=== PATIENT | female | born 1955 | race African-American/Black ===

== ENCOUNTER 2018-02-27 02:51 | Inpatient (IN) | payer MEDICARE, OTHER ==
[2018-02-27] VITALS (72 sets, daily range): BP systolic 94–171; BP diastolic 53–94
[~2018-02-27] VITALS: Ht 152.4 cm; Wt 61.6 kg
[~2018-02-27 02:51] MED LIST: AML5T PO; ASCO500T11 PO; ASPI-231 PO; ATOR40TA52 PO; FERR-7 PO; FLUT1INH6 IN; HYDR50TA15 PO; INSUINJ18 SC; LEVEMIR SC; MET50T PO; OXYB15TA12 PO
[2018-02-27] MEDS ORDERED: methylPREDNISolone SOD SUCC 125 MG/2 ML VL IV ONE ×2 (03:00→06:30)
[2018-02-27] MEDS ORDERED: methylPREDNISolone SOD SUCC 125 MG/2 ML VL ONE (03:00)
[2018-02-27 03:12] LABS: Basophils # (auto) 0.1 uL; Basophils % (auto) 0.6 % (0.0-2.0); Eosinophils # (auto) 0.3 uL; Hematocrit 46.2 % (36.0-46.0); Hemoglobin 15.2 g/dL (12.2-16.2); Lymphocytes # (auto) 8.2 uL; Lymphocytes % (auto) 54.9 % (10.0-50.0); Mean Corpuscular Hemoglobin 29.3 pg (28.0-32.0); Mean Corpuscular Hgb Conc. 32.9 g/dL (32.0-36.0); Mean Corpuscular Volume 89.1 fL (80.0-100.0); Monocytes # (auto) 0.8 uL; Monocytes % (auto) 5.3 % (0.0-12.0); Neutrophils # (auto) 5.5 uL; Neutrophils % (auto) 37.2 % (37.0-80.0); Nucleated Red Blood Cells % 0.2 %; Platelet Count (auto) 437 10^3/uL (140-450); Red Blood Cells 5.18 10^6/uL (4.0-5.20); Red Cell Distribution Width 13.5 % (11.8-14.3); White Blood Cell 14.9 10^3/uL (4.4-10.8)
[2018-02-27] MEDS ORDERED: MAGNESIUM SULFATE 1GM/100ML 100 ML IV ONE (03:13)
[2018-02-27] MEDS ORDERED: LORazepam 2MG/ML-1ML VIAL IV ONE ×2 (03:15→04:15)
[2018-02-27] MEDS ORDERED: LORazepam 2MG/ML-1ML VIAL ONE (03:15)
[2018-02-27] MEDS: MAGNESIUM SULFATE 1GM/100ML 100 ML IV SCH ×6 (03:25→19:00)
[2018-02-27 03:27] LABS: INR 0.92 (0.9-1.15); Partial Thromboplastin Time 27.3 sec (23.78-33.04); Prothrombin Time 9.9 sec (9.27-12.13)
[2018-02-27 03:29] LABS: Alanine Aminotransferase 34 U/L (13-56); Anion Gap 10 (5-15); Aspartate Aminotransferase 25 U/L (15-37); BUN/Creatinine Ratio 16.7; Blood Urea Nitrogen 18 mg/dL (7-18); Calcium 8.9 mg/dL (8.5-10.1); Carbon Dioxide 26 mmol/L (21-32); Chloride 102 mmol/L (98-107); GFR African American 67 mL/min; GFR Non-African American 55 mL/min; Magnesium 1.9 mg/dL (1.6-2.6); Sodium 138 mmol/L (136-145)
[2018-02-27 03:34] LABS: Alkaline Phosphatase 112 U/L (45-117); Bilirubin, Total 0.6 mg/dL (0.2-1.0); Total Protein 8.7 g/dL (6.4-8.2)
[2018-02-27] MEDS ORDERED: METOPROLOL TARTRATE 1MG/1ML-5ML VIAL IV ONE ×2 (03:34→04:00)
[2018-02-27 03:42] LABS: Glucose 410 mg/dL (74-106)
[2018-02-27] MEDS ORDERED: IPRATROPIUM BROM 0.5 MG/2.5ML INH SOL NEB ONE (03:45)
[2018-02-27] MEDS ORDERED: InsuLIN REG 1unit/0.01ml Soln (100units/ml) IV ONE ×2 (03:45→13:15)
[2018-02-27] MEDS ORDERED: ALBUTEROL SULF 2.5 MG/0.5ML(0.5%) NEB SOLN NEB ONE (03:45)
[2018-02-27] MEDS ORDERED: EPINEPHrine HCL 0.5 ML NEB ONE (04:20)
[2018-02-27] MEDS ORDERED: EPINEPHrine HCL 0.5 ML NEB NEB ONE (04:30)
[2018-02-27] MEDS ORDERED: SUCCINYLCHOLINE CHLORIDE 20 MG/ML 10ML VIAL IV ONE ×2 (05:05→05:15)
[2018-02-27] MEDS ORDERED: ETOMIDATE (2MG/ML) 20ML VIAL IV ONE ×2 (05:06→05:15)
[2018-02-27] MEDS ORDERED: PROPOFOL 100 ML IV ONE (05:07)
[2018-02-27] MEDS: PROPOFOL 100 ML IV SCH ×2 (05:25→22:37)
[2018-02-27] MEDS ORDERED: PROMETHAZINE W/CODEINE 5 ML ORAL SYRUP PO ONE (05:45)
[2018-02-27] MEDS: MIDAZOLAM DRIP 50 mg/50mL 50 ML IV SCH ×2 (06:21→20:38)
[2018-02-27] MEDS: NOREPINEPHRINE 8 MG/250ML KIT 250 ML IV SCH (06:21)
[2018-02-27] MEDS ORDERED: ACETAMINOPHEN 650 mg PER 20 mL UD PO PRN (06:30)
[2018-02-27] MEDS ORDERED: ONDANSETRON HCL 4 MG/2 ML VIAL IV PRN (06:30)
[2018-02-27] MEDS ORDERED: VANCOMYCIN PER PHARMACY 0 MG IV SCH (06:30)
[2018-02-27] MEDS ORDERED: DEXTROSE (50%) 50ML SYRG IV PRN (06:30)
[2018-02-27] MEDS ORDERED: SODIUM CHLORIDE 0.9% 1,000 ML IV ONE (06:30)
[2018-02-27] MEDS ORDERED: PIPERACILLIN-TAZOB 3.375GM 100 ML IV ONE (06:30)
[2018-02-27 07:02] LABS: Urine Bacteria NONE SEEN /hpf (None Seen); Urine Blood Negative /uL (Negative); Urine Specific Gravity 1.025 (1.001-1.035); Urine WBC <1 /hpf (0 - 5)
[2018-02-27 07:26] LABS: Lactic Acid w/Reflex 7.7 mmol/L (0.4-2.0)
[2018-02-27 07:38] LABS: BUN/Creatinine Ratio 15.3; Calcium 8.5 mg/dL (8.5-10.1); Potassium 3.1 mmol/L (3.5-5.1)
[2018-02-27] MEDS ORDERED: VANCOMYCIN 1GM/250ML 250 ML IV ONE (08:00)
[2018-02-27] MEDS: ACCU-CHEK COMFORT CURVE STRIP VI SCH ×4 (08:46→20:30)
[2018-02-27] MEDS: InsuLIN REG 1unit/0.01ml Soln (100units/ml) SC SCH ×4 (08:46→20:30)
[2018-02-27] MEDS ORDERED: AMIODARONE HCL 150 MG in D5W 5% 100 ML IV ONE (10:00)
[2018-02-27] MEDS ORDERED: IPRATROPIUM BROM 0.5 MG/2.5ML INH SOL NEB SCH (10:00)
[2018-02-27] MEDS ORDERED: ALBUTEROL SULF 2.5 MG/0.5ML(0.5%) NEB SOLN NEB SCH (10:00)
[2018-02-27] MEDS ORDERED: AMIODARONE HCL 900 MG in DEXTROSE 500 ML IV SCH ×2 (10:10→16:10)
[2018-02-27] MEDS: ALBUTEROL SULF 2.5 MG/0.5ML(0.5%) NEB SOLN NEB SCH ×2 (10:22→18:19)
[2018-02-27] MEDS: IPRATROPIUM BROM 0.5 MG/2.5ML INH SOL NEB SCH ×2 (10:22→18:19)
[2018-02-27] MEDS: PANTOPRAZOLE 40 MG/10 ML VIAL IV SCH (10:25)
[2018-02-27] MEDS: POTASSIUM CHL 20MEQ/100ML 100 ML IV SCH ×2 (10:25→11:56)
[2018-02-27] MEDS ORDERED: EPINEPHrine HCL 1 MG/10 ML SYRG IV ONE (10:44)
[2018-02-27] MEDS: PIPERACILLIN-TAZOB 3.375GM 100 ML IV SCH ×2 (11:56→17:53)
[2018-02-27 13:04] LABS: BUN/Creatinine Ratio 12.2; Calcium 8.5 mg/dL (8.5-10.1)
[2018-02-27 13:06] LABS: Lactic Acid w/Reflex 8.7 mmol/L (0.4-2.0)
[2018-02-27] MEDS ORDERED: INSULIN LANTUS (GLARGINE) 1 /0.01ml (100units/ml) SC ONE (13:15)
[2018-02-27] MEDS: methylPREDNISolone SOD SUCC 40 MG/ML VL IV SCH ×2 (14:29→22:35)
[2018-02-27] MEDS ORDERED: POTASSIUM CHL 20MEQ/100ML 100 ML IV SCH (15:30)
[2018-02-27] MEDS: INSULIN LANTUS (GLARGINE) 1 /0.01ml (100units/ml) SC SCH (22:36)
[2018-02-28] VITALS (107 sets, daily range): BP systolic 94–173; BP diastolic 58–94
[2018-02-28] MEDS: PIPERACILLIN-TAZOB 3.375GM 100 ML IV SCH ×4 (00:13→19:02)
[2018-02-28] MEDS: InsuLIN REG 1unit/0.01ml Soln (100units/ml) SC SCH ×6 (00:13→20:12)
[2018-02-28] MEDS: ACCU-CHEK COMFORT CURVE STRIP VI SCH ×6 (00:13→20:11)
[2018-02-28] MEDS: IPRATROPIUM BROM 0.5 MG/2.5ML INH SOL NEB SCH ×4 (00:31→18:31)
[2018-02-28] MEDS: ALBUTEROL SULF 2.5 MG/0.5ML(0.5%) NEB SOLN NEB SCH ×4 (00:31→18:31)
[2018-02-28 04:24] LABS: Basophils # (auto) 0 uL; Basophils % (auto) 0.1 % (0.0-2.0); Eosinophils # (auto) 0 uL; Hematocrit 37.2 % (36.0-46.0); Hemoglobin 12.4 g/dL (12.2-16.2); Lymphocytes # (auto) 1.6 uL; Lymphocytes % (auto) 9.1 % (10.0-50.0); Mean Corpuscular Hemoglobin 29.4 pg (28.0-32.0); Mean Corpuscular Hgb Conc. 33.3 g/dL (32.0-36.0); Mean Corpuscular Volume 88.3 fL (80.0-100.0); Monocytes # (auto) 0.6 uL; Monocytes % (auto) 3.7 % (0.0-12.0); Neutrophils # (auto) 15.3 uL; Neutrophils % (auto) 87.1 % (37.0-80.0); Platelet Count (auto) 393 10^3/uL (140-450); Red Blood Cells 4.22 10^6/uL (4.0-5.20); Red Cell Distribution Width 13.6 % (11.8-14.3); White Blood Cell 17.5 10^3/uL (4.4-10.8)
[2018-02-28 04:34] LABS: Albumin 3.3 g/dL (3.4-5.0); BUN/Creatinine Ratio 15.7; Calcium 8.8 mg/dL (8.5-10.1); Potassium 3.6 mmol/L (3.5-5.1)
[2018-02-28 04:37] LABS: Bilirubin, Total 0.7 mg/dL (0.2-1.0); Total Protein 6.7 g/dL (6.4-8.2)
[2018-02-28] MEDS: methylPREDNISolone SOD SUCC 40 MG/ML VL IV SCH ×3 (06:18→21:55)
[2018-02-28] MEDS: NOREPINEPHRINE 8 MG/250ML KIT 250 ML IV SCH (06:21)
[2018-02-28] MEDS: MIDAZOLAM DRIP 50 mg/50mL 50 ML IV SCH (06:30)
[2018-02-28] MEDS: PROPOFOL 100 ML IV SCH ×2 (06:30→20:15)
[2018-02-28] MEDS: INSULIN LANTUS (GLARGINE) 1 /0.01ml (100units/ml) SC SCH ×2 (06:30→21:55)
[2018-02-28] MEDS ORDERED: VANCOMYCIN 1GM/250ML 250 ML IV ONE (10:15)
[2018-02-28] MEDS: PANTOPRAZOLE 40 MG/10 ML VIAL IV SCH (10:29)
[2018-02-28] MEDS ORDERED: Glucerna 1.2 Cal 1Liter BOTTLE GT SCH (12:15)
[2018-02-28] MEDS: ENOXAPARIN SOD 30 MG/0.3 ML SYRINGE SC SCH (13:26)
[2018-02-28] MEDS: SODIUM CHLORIDE 0.9% 1,000 ML IV SCH (13:26)
[2018-02-28 15:29] LABS: Alcohol, Urine < 3.0 mg/dL (0-5); Amphetamine Screen, Urine NEGATIVE (NEGATIVE); Barbiturate Scree,Urine NEGATIVE (NEGATIVE); Benzodiazephine Screen, Urine POSITIVE (NEGATIVE); Cannabinoid Screen, Urine NEGATIVE (NEGATIVE); Cocaine Screen, Urine NEGATIVE (NEGATIVE); Opiate Scree,Urine NEGATIVE (NEGATIVE); Phencyclidine Screen, Urine NEGATIVE (NEGATIVE)
[2018-02-28] MEDS: LABETALOL HCL 5 MG/ML ML 20ML VIAL IV PRN (21:56)
[2018-03-01] VITALS (106 sets, daily range): BP systolic 101–186; BP diastolic 62–105
[2018-03-01] MEDS: IPRATROPIUM BROM 0.5 MG/2.5ML INH SOL NEB SCH ×4 (00:08→19:09)
[2018-03-01] MEDS: ALBUTEROL SULF 2.5 MG/0.5ML(0.5%) NEB SOLN NEB SCH ×4 (00:08→19:09)
[2018-03-01] MEDS: ACCU-CHEK COMFORT CURVE STRIP VI SCH ×6 (00:47→19:55)
[2018-03-01] MEDS: PIPERACILLIN-TAZOB 3.375GM 100 ML IV SCH ×4 (00:47→18:02)
[2018-03-01] MEDS: InsuLIN REG 1unit/0.01ml Soln (100units/ml) SC SCH ×6 (00:47→19:55)
[2018-03-01] MEDS: SODIUM CHLORIDE 0.9% 1,000 ML IV SCH (01:35)
[2018-03-01] MEDS: LABETALOL HCL 5 MG/ML ML 20ML VIAL IV PRN (02:54)
[2018-03-01 04:14] LABS: Basophils # (auto) 0 uL; Basophils % (auto) 0.2 % (0.0-2.0); Eosinophils # (auto) 0 uL; Hematocrit 38.6 % (36.0-46.0); Hemoglobin 12.5 g/dL (12.2-16.2); Lymphocytes # (auto) 1.2 uL; Lymphocytes % (auto) 6.2 % (10.0-50.0); Mean Corpuscular Hemoglobin 28.9 pg (28.0-32.0); Mean Corpuscular Hgb Conc. 32.4 g/dL (32.0-36.0); Mean Corpuscular Volume 89.3 fL (80.0-100.0); Monocytes # (auto) 0.5 uL; Monocytes % (auto) 2.5 % (0.0-12.0); Neutrophils # (auto) 17.9 uL; Neutrophils % (auto) 91.1 % (37.0-80.0); Platelet Count (auto) 376 10^3/uL (140-450); Red Blood Cells 4.32 10^6/uL (4.0-5.20); White Blood Cell 19.7 10^3/uL (4.4-10.8)
[2018-03-01 04:31] LABS: BUN/Creatinine Ratio 16.7; Calcium 8.4 mg/dL (8.5-10.1); Potassium 4.2 mmol/L (3.5-5.1)
[2018-03-01] MEDS ORDERED: hydrALAZINE HCL 20 MG/ML VL IV ONE (05:30)
[2018-03-01] MEDS: methylPREDNISolone SOD SUCC 40 MG/ML VL IV SCH ×3 (06:09→21:49)
[2018-03-01] MEDS: NOREPINEPHRINE 8 MG/250ML KIT 250 ML IV SCH (06:21)
[2018-03-01] MEDS: INSULIN LANTUS (GLARGINE) 1 /0.01ml (100units/ml) SC SCH ×2 (06:43→21:50)
[2018-03-01] MEDS: MORPHINE SULFATE 4 MG/ML SYR/VIAL IV PRN (08:27)
[2018-03-01] MEDS ORDERED: VANCOMYCIN 1GM/250ML 250 ML IV SCH (10:00)
[2018-03-01] MEDS: PANTOPRAZOLE 40 MG/10 ML VIAL IV SCH (10:31)
[2018-03-01] MEDS: ENOXAPARIN SOD 30 MG/0.3 ML SYRINGE SC SCH (10:32)
[2018-03-01] MEDS: PROPOFOL 100 ML IV SCH (15:00)
[2018-03-01] MEDS: MIDAZOLAM DRIP 50 mg/50mL 50 ML IV SCH (15:00)
[2018-03-02] VITALS (107 sets, daily range): BP systolic 107–187; BP diastolic 61–106
[2018-03-02] MEDS: IPRATROPIUM BROM 0.5 MG/2.5ML INH SOL NEB SCH ×4 (00:11→18:31)
[2018-03-02] MEDS: ALBUTEROL SULF 2.5 MG/0.5ML(0.5%) NEB SOLN NEB SCH ×4 (00:11→18:31)
[2018-03-02] MEDS: ACCU-CHEK COMFORT CURVE STRIP VI SCH ×5 (00:16→20:48)
[2018-03-02] MEDS: InsuLIN REG 1unit/0.01ml Soln (100units/ml) SC SCH ×5 (00:16→20:00)
[2018-03-02] MEDS: PIPERACILLIN-TAZOB 3.375GM 100 ML IV SCH ×3 (00:29→13:55)
[2018-03-02] MEDS: hydrALAZINE HCL 20 MG/ML VL IV PRN ×2 (00:46→12:26)
[2018-03-02] MEDS: PROPOFOL 100 ML IV SCH (02:39)
[2018-03-02] MEDS: LABETALOL HCL 5 MG/ML ML 20ML VIAL IV PRN ×2 (03:24→13:57)
[2018-03-02 04:29] LABS: Anion Gap 8 (5-15); BUN/Creatinine Ratio 19.1; Blood Urea Nitrogen 21 mg/dL (7-18); Calcium 8.1 mg/dL (8.5-10.1); Carbon Dioxide 20 mmol/L (21-32); Chloride 114 mmol/L (98-107); GFR African American 65 mL/min; GFR Non-African American 54 mL/min; Glucose 161 mg/dL (74-106); Potassium 4.1 mmol/L (3.5-5.1); Sodium 142 mmol/L (136-145)
[2018-03-02 05:23] LABS: Basophils # (auto) 0 uL; Eosinophils # (auto) 0 uL; Hemoglobin 12.9 g/dL (12.2-16.2); Mean Corpuscular Hemoglobin 29.3 pg (28.0-32.0); Mean Corpuscular Volume 88.7 fL (80.0-100.0); Monocytes # (auto) 0.4 uL; Monocytes % (auto) 3.4 % (0.0-12.0); Neutrophils # (auto) 11.6 uL; Neutrophils % (auto) 88.6 % (37.0-80.0); Nucleated Red Blood Cells % 0.2 %; Platelet Count (auto) 372 10^3/uL (140-450); Red Cell Distribution Width 14.2 % (11.8-14.3); White Blood Cell 13.1 10^3/uL (4.4-10.8)
[2018-03-02] MEDS: methylPREDNISolone SOD SUCC 40 MG/ML VL IV SCH ×3 (06:00→22:03)
[2018-03-02] MEDS: NOREPINEPHRINE 8 MG/250ML KIT 250 ML IV SCH (06:21)
[2018-03-02] MEDS: INSULIN LANTUS (GLARGINE) 1 /0.01ml (100units/ml) SC SCH ×2 (06:50→22:00)
[2018-03-02] MEDS: PANTOPRAZOLE 40 MG/10 ML VIAL IV SCH (10:20)
[2018-03-02] MEDS: ENOXAPARIN SOD 30 MG/0.3 ML SYRINGE SC SCH (10:21)
[2018-03-02] MEDS: VANCOMYCIN 1GM/250ML 250 ML IV SCH (12:24)
[2018-03-02] MEDS: MORPHINE SULFATE 4 MG/ML SYR/VIAL IV PRN (20:47)
[2018-03-02] MEDS: hydrALAZINE HCL 25 MG TAB PO SCH (22:03)
[2018-03-02] MEDS: METOPROLOL TARTRATE 50 MG TAB PO SCH (22:04)
[2018-03-03] VITALS (85 sets, daily range): BP systolic 137–187; BP diastolic 73–116
[2018-03-03] MEDS: PIPERACILLIN-TAZOB 3.375GM 100 ML IV SCH ×5 (00:06→23:36)
[2018-03-03] MEDS: ACCU-CHEK COMFORT CURVE STRIP VI SCH ×7 (00:06→23:36)
[2018-03-03] MEDS: IPRATROPIUM BROM 0.5 MG/2.5ML INH SOL NEB SCH ×4 (00:23→18:23)
[2018-03-03] MEDS: ALBUTEROL SULF 2.5 MG/0.5ML(0.5%) NEB SOLN NEB SCH ×4 (00:23→18:23)
[2018-03-03] MEDS: MORPHINE SULFATE 4 MG/ML SYR/VIAL IV PRN (01:18)
[2018-03-03] MEDS: PROPOFOL 100 ML IV SCH (01:55)
[2018-03-03] MEDS: LABETALOL HCL 5 MG/ML ML 20ML VIAL IV PRN ×2 (02:10→18:29)
[2018-03-03] MEDS: LORazepam 2MG/ML-1ML VIAL IV PRN ×2 (03:45→23:37)
[2018-03-03 04:13] LABS: Basophils # (auto) 0 uL; Basophils % (auto) 0.1 % (0.0-2.0); Eosinophils # (auto) 0 uL; Hematocrit 40.1 % (36.0-46.0); Hemoglobin 13.1 g/dL (12.2-16.2); Lymphocytes # (auto) 1.3 uL; Lymphocytes % (auto) 10.6 % (10.0-50.0); Mean Corpuscular Hemoglobin 29.2 pg (28.0-32.0); Mean Corpuscular Hgb Conc. 32.7 g/dL (32.0-36.0); Mean Corpuscular Volume 89.4 fL (80.0-100.0); Monocytes # (auto) 0.4 uL; Neutrophils # (auto) 10.7 uL; Neutrophils % (auto) 86.3 % (37.0-80.0); Nucleated Red Blood Cells % 0.7 %; Platelet Count (auto) 333 10^3/uL (140-450); Red Blood Cells 4.48 10^6/uL (4.0-5.20); Red Cell Distribution Width 14.1 % (11.8-14.3); White Blood Cell 12.3 10^3/uL (4.4-10.8)
[2018-03-03] MEDS: VANCOMYCIN 1GM/250ML 250 ML IV SCH ×2 (04:20→19:15)
[2018-03-03] MEDS: InsuLIN REG 1unit/0.01ml Soln (100units/ml) SC SCH ×7 (04:20→23:36)
[2018-03-03 04:35] LABS: BUN/Creatinine Ratio 18.6; Calcium 8.3 mg/dL (8.5-10.1); Potassium 4.3 mmol/L (3.5-5.1)
[2018-03-03] MEDS: NOREPINEPHRINE 8 MG/250ML KIT 250 ML IV SCH (05:35)
[2018-03-03] MEDS: MIDAZOLAM DRIP 50 mg/50mL 50 ML IV SCH (05:35)
[2018-03-03] MEDS: hydrALAZINE HCL 20 MG/ML VL IV PRN ×2 (05:56→17:14)
[2018-03-03] MEDS: INSULIN LANTUS (GLARGINE) 1 /0.01ml (100units/ml) SC SCH ×2 (05:57→21:47)
[2018-03-03] MEDS: methylPREDNISolone SOD SUCC 40 MG/ML VL IV SCH ×3 (05:57→21:37)
[2018-03-03] MEDS: PANTOPRAZOLE 40 MG/10 ML VIAL IV SCH (10:09)
[2018-03-03] MEDS: amLODIPine BESYLATE 5 MG TAB PO SCH (10:10)
[2018-03-03] MEDS: hydrALAZINE HCL 25 MG TAB PO SCH ×2 (10:11→21:37)
[2018-03-03] MEDS: METOPROLOL TARTRATE 50 MG TAB PO SCH ×2 (10:11→20:48)
[2018-03-03] MEDS: ENOXAPARIN SOD 30 MG/0.3 ML SYRINGE SC SCH (10:11)
[2018-03-04] VITALS (26 sets, daily range): BP systolic 106–194; BP diastolic 59–113
[2018-03-04] MEDS: hydrALAZINE HCL 20 MG/ML VL IV PRN (00:14)
[2018-03-04] MEDS: ALBUTEROL SULF 2.5 MG/0.5ML(0.5%) NEB SOLN NEB SCH ×4 (00:15→18:56)
[2018-03-04] MEDS: IPRATROPIUM BROM 0.5 MG/2.5ML INH SOL NEB SCH ×4 (00:15→18:55)
[2018-03-04] MEDS: LABETALOL HCL 5 MG/ML ML 20ML VIAL IV PRN ×2 (02:12→06:41)
[2018-03-04] MEDS: InsuLIN REG 1unit/0.01ml Soln (100units/ml) SC SCH ×6 (04:04→23:42)
[2018-03-04] MEDS: PROPOFOL 100 ML IV SCH (04:04)
[2018-03-04] MEDS: ACCU-CHEK COMFORT CURVE STRIP VI SCH ×5 (04:04→17:54)
[2018-03-04 04:18] LABS: Basophils # (auto) 0.1 uL; Basophils % (auto) 0.5 % (0.0-2.0); Eosinophils # (auto) 0 uL; Hematocrit 43.6 % (36.0-46.0); Hemoglobin 14.4 g/dL (12.2-16.2); Lymphocytes # (auto) 2.1 uL; Lymphocytes % (auto) 15.4 % (10.0-50.0); Mean Corpuscular Hemoglobin 29.3 pg (28.0-32.0); Mean Corpuscular Volume 88.9 fL (80.0-100.0); Monocytes # (auto) 0.7 uL; Neutrophils # (auto) 10.6 uL; Neutrophils % (auto) 79.1 % (37.0-80.0); Nucleated Red Blood Cells % 0.2 %; Platelet Count (auto) 426 10^3/uL (140-450); Red Blood Cells 4.91 10^6/uL (4.0-5.20); Red Cell Distribution Width 13.9 % (11.8-14.3); White Blood Cell 13.4 10^3/uL (4.4-10.8)
[2018-03-04 04:30] LABS: Calcium 8.8 mg/dL (8.5-10.1); Potassium 3.6 mmol/L (3.5-5.1)
[2018-03-04 04:32] LABS: BUN/Creatinine Ratio 15.8
[2018-03-04] MEDS: PIPERACILLIN-TAZOB 3.375GM 100 ML IV SCH ×2 (06:00→10:09)
[2018-03-04] MEDS: INSULIN LANTUS (GLARGINE) 1 /0.01ml (100units/ml) SC SCH ×2 (06:00→22:28)
[2018-03-04] MEDS: methylPREDNISolone SOD SUCC 40 MG/ML VL IV SCH ×2 (06:00→13:35)
[2018-03-04] MEDS: MIDAZOLAM DRIP 50 mg/50mL 50 ML IV SCH (06:00)
[2018-03-04] MEDS: NOREPINEPHRINE 8 MG/250ML KIT 250 ML IV SCH (06:00)
[2018-03-04] MEDS: PANTOPRAZOLE 40 MG/10 ML VIAL IV SCH (10:08)
[2018-03-04] MEDS: hydrALAZINE HCL 25 MG TAB PO SCH ×2 (10:09→22:29)
[2018-03-04] MEDS: amLODIPine BESYLATE 5 MG TAB PO SCH (10:09)
[2018-03-04] MEDS: METOPROLOL TARTRATE 50 MG TAB PO SCH ×2 (10:09→22:28)
[2018-03-04] MEDS: ENOXAPARIN SOD 30 MG/0.3 ML SYRINGE SC SCH (10:10)
[2018-03-04] MEDS: VANCOMYCIN 1GM/250ML 250 ML IV SCH (12:01)
[2018-03-04] MEDS ORDERED: MORPHINE SULFATE 4 MG/ML SYR/VIAL IV PRN (13:15)
[2018-03-04] MEDS ORDERED: DEXTROSE (50%) 50ML SYRG IV PRN (16:45)
[2018-03-05] VITALS (15 sets, daily range): BP systolic 91–160; BP diastolic 46–95
[2018-03-05] MEDS: ACCU-CHEK COMFORT CURVE STRIP VI SCH ×4 (00:15→17:27)
[2018-03-05] MEDS: IPRATROPIUM BROM 0.5 MG/2.5ML INH SOL NEB SCH ×4 (00:17→18:43)
[2018-03-05] MEDS: ALBUTEROL SULF 2.5 MG/0.5ML(0.5%) NEB SOLN NEB SCH ×4 (00:17→18:43)
[2018-03-05] MEDS ORDERED: methylPREDNISolone SOD SUCC 40 MG/ML VL IV SCH (02:00)
[2018-03-05] MEDS: InsuLIN REG 1unit/0.01ml Soln (100units/ml) SC SCH ×3 (06:00→17:27)
[2018-03-05] MEDS: INSULIN LANTUS (GLARGINE) 1 /0.01ml (100units/ml) SC SCH (06:17)
[2018-03-05] MEDS: amLODIPine BESYLATE 5 MG TAB PO SCH (09:42)
[2018-03-05] MEDS: METOPROLOL TARTRATE 50 MG TAB PO SCH ×2 (09:43→22:11)
[2018-03-05] MEDS: PANTOPRAZOLE 40 MG/10 ML VIAL IV SCH (09:43)
[2018-03-05] MEDS: hydrALAZINE HCL 25 MG TAB PO SCH ×2 (09:43→22:10)
[2018-03-05] MEDS: ENOXAPARIN SOD 30 MG/0.3 ML SYRINGE SC SCH (09:43)
[2018-03-05] MEDS ORDERED: VANCOMYCIN PER PHARMACY 0 MG IV SCH (10:15)
[2018-03-05] MEDS: VANCOMYCIN 1GM/250ML 250 ML IV SCH (10:48)
[2018-03-05] MEDS: predniSONE 20 MG TAB PO SCH (12:35)
[2018-03-05] MEDS ORDERED: INSULIN LANTUS (GLARGINE) 1 /0.01ml (100units/ml) SC SCH (22:00)
[2018-03-06] MEDS: ACCU-CHEK COMFORT CURVE STRIP VI SCH ×7 (00:11→23:51)
[2018-03-06] MEDS: InsuLIN REG 1unit/0.01ml Soln (100units/ml) SC SCH ×7 (00:11→23:52)
[2018-03-06] MEDS: ALBUTEROL SULF 2.5 MG/0.5ML(0.5%) NEB SOLN NEB SCH ×4 (00:39→19:19)
[2018-03-06] MEDS: IPRATROPIUM BROM 0.5 MG/2.5ML INH SOL NEB SCH ×4 (00:40→19:19)
[2018-03-06] MEDS ORDERED: DEXTROSE (50%) 50ML SYRG IV PRN (00:45)
[2018-03-06] MEDS: VANCOMYCIN 1GM/250ML 250 ML IV SCH ×2 (02:59→18:17)
[2018-03-06 05:00] VITALS: BP 153/83
[2018-03-06] MEDS: INSULIN LANTUS (GLARGINE) 1 /0.01ml (100units/ml) SC SCH (06:24)
[2018-03-06 07:18] LABS: Basophils # (auto) 0 uL; Basophils % (auto) 0.2 % (0.0-2.0); Eosinophils # (auto) 0.1 uL; Eosinophils % (auto) 0.7 % (0.0-7.0); Hematocrit 42.7 % (36.0-46.0); Hemoglobin 13.8 g/dL (12.2-16.2); Lymphocytes # (auto) 4.3 uL; Lymphocytes % (auto) 26.1 % (10.0-50.0); Mean Corpuscular Hemoglobin 28.9 pg (28.0-32.0); Mean Corpuscular Hgb Conc. 32.4 g/dL (32.0-36.0); Mean Corpuscular Volume 89.3 fL (80.0-100.0); Monocytes # (auto) 1.6 uL; Monocytes % (auto) 9.8 % (0.0-12.0); Neutrophils # (auto) 10.4 uL; Neutrophils % (auto) 63.2 % (37.0-80.0); Platelet Count (auto) 402 10^3/uL (140-450); Red Blood Cells 4.78 10^6/uL (4.0-5.20); Red Cell Distribution Width 13.7 % (11.8-14.3); White Blood Cell 16.5 10^3/uL (4.4-10.8)
[2018-03-06 07:36] LABS: Potassium 3.3 mmol/L (3.5-5.1)
[2018-03-06 07:44] LABS: Albumin 3.1 g/dL (3.4-5.0); BUN/Creatinine Ratio 34.1; Bilirubin, Total 0.6 mg/dL (0.2-1.0); Calcium 8.8 mg/dL (8.5-10.1); Total Protein 6.7 g/dL (6.4-8.2)
[2018-03-06 08:30] VITALS: BP 157/70
[2018-03-06] MEDS: PANTOPRAZOLE 40 MG/10 ML VIAL IV SCH (09:24)
[2018-03-06] MEDS: ENOXAPARIN SOD 30 MG/0.3 ML SYRINGE SC SCH (09:24)
[2018-03-06] MEDS: METOPROLOL TARTRATE 50 MG TAB PO SCH ×2 (09:25→22:22)
[2018-03-06] MEDS: hydrALAZINE HCL 25 MG TAB PO SCH ×2 (09:26→22:22)
[2018-03-06] MEDS: predniSONE 20 MG TAB PO SCH (09:26)
[2018-03-06] MEDS: amLODIPine BESYLATE 5 MG TAB PO SCH (09:27)
[2018-03-06] MEDS ORDERED: LORazepam 2MG/ML-1ML VIAL IV PRN (10:00)
[2018-03-06] MEDS ORDERED: ENOXAPARIN SOD 30 MG/0.3 ML SYRINGE SC SCH (10:00)
[2018-03-06] MEDS ORDERED: POTASSIUM CHL 20 Meq TABLET PO ONE (12:30)
[2018-03-06 13:04] VITALS: BP 120/71
[2018-03-06 17:10] VITALS: BP 136/73
[2018-03-06 22:00] VITALS: BP 124/65
[2018-03-07] MEDS: IPRATROPIUM BROM 0.5 MG/2.5ML INH SOL NEB SCH ×4 (00:40→19:41)
[2018-03-07] MEDS: ALBUTEROL SULF 2.5 MG/0.5ML(0.5%) NEB SOLN NEB SCH ×4 (00:40→19:41)
[2018-03-07] MEDS: InsuLIN REG 1unit/0.01ml Soln (100units/ml) SC SCH ×5 (04:00→20:00)
[2018-03-07] MEDS: ACCU-CHEK COMFORT CURVE STRIP VI SCH ×5 (04:09→20:00)
[2018-03-07 05:00] VITALS: BP 152/79
[2018-03-07] MEDS: INSULIN LANTUS (GLARGINE) 1 /0.01ml (100units/ml) SC SCH (06:29)
[2018-03-07 09:15] VITALS: BP 149/93
[2018-03-07] MEDS: hydrALAZINE HCL 25 MG TAB PO SCH ×2 (10:00→21:23)
[2018-03-07] MEDS: ENOXAPARIN SOD 40 MG/0.4 ML SYRINGE SC SCH (10:00)
[2018-03-07] MEDS: amLODIPine BESYLATE 5 MG TAB PO SCH (10:00)
[2018-03-07] MEDS ORDERED: predniSONE 20 MG TAB PO SCH (10:00)
[2018-03-07] MEDS: METOPROLOL TARTRATE 50 MG TAB PO SCH ×2 (10:00→21:23)
[2018-03-07] MEDS: VANCOMYCIN 1GM/250ML 250 ML IV SCH (10:59)
[2018-03-07] MEDS ORDERED: POTASSIUM CHL 20 Meq TABLET PO ONE (12:30)
[2018-03-07] MEDS ORDERED: FUROSEMIDE 20 MG/2 ML VIAL IV ONE (12:30)
[2018-03-07 12:57] VITALS: BP 154/78
[2018-03-07 17:18] VITALS: BP 134/77
[2018-03-07 21:57] VITALS: BP 144/76
[2018-03-08] VITALS (7 sets, daily range): BP systolic 120–160; BP diastolic 54–111
[2018-03-08] MEDS: ACCU-CHEK COMFORT CURVE STRIP VI SCH ×6 (00:29→19:59)
[2018-03-08 02:25] LABS: Basophils # (auto) 0.1 uL; Basophils % (auto) 0.9 % (0.0-2.0); Eosinophils # (auto) 0.1 uL; Eosinophils % (auto) 0.6 % (0.0-7.0); Hematocrit 39.5 % (36.0-46.0); Lymphocytes # (auto) 4.1 uL; Lymphocytes % (auto) 27.2 % (10.0-50.0); Mean Corpuscular Hemoglobin 28.9 pg (28.0-32.0); Mean Corpuscular Volume 87.8 fL (80.0-100.0); Monocytes # (auto) 1.3 uL; Monocytes % (auto) 8.6 % (0.0-12.0); Neutrophils # (auto) 9.6 uL; Neutrophils % (auto) 62.7 % (37.0-80.0); Nucleated Red Blood Cells % 0.1 %; Platelet Count (auto) 390 10^3/uL (140-450); Red Cell Distribution Width 13.6 % (11.8-14.3); White Blood Cell 15.2 10^3/uL (4.4-10.8)
[2018-03-08 02:38] LABS: BUN/Creatinine Ratio 25.3; Calcium 8.4 mg/dL (8.5-10.1); Potassium 3.6 mmol/L (3.5-5.1)
[2018-03-08] MEDS: VANCOMYCIN 1GM/250ML 250 ML IV SCH (03:04)
[2018-03-08] MEDS: InsuLIN REG 1unit/0.01ml Soln (100units/ml) SC SCH ×6 (04:00→20:03)
[2018-03-08] MEDS: INSULIN LANTUS (GLARGINE) 1 /0.01ml (100units/ml) SC SCH (06:14)
[2018-03-08] MEDS: ALBUTEROL SULF 2.5 MG/0.5ML(0.5%) NEB SOLN NEB SCH ×4 (07:04→20:06)
[2018-03-08] MEDS: IPRATROPIUM BROM 0.5 MG/2.5ML INH SOL NEB SCH ×4 (07:04→20:06)
[2018-03-08] MEDS: predniSONE 5 MG TAB PO SCH (10:16)
[2018-03-08] MEDS: ENOXAPARIN SOD 40 MG/0.4 ML SYRINGE SC SCH (10:16)
[2018-03-08] MEDS: amLODIPine BESYLATE 5 MG TAB PO SCH (10:17)
[2018-03-08] MEDS: hydrALAZINE HCL 25 MG TAB PO SCH ×2 (10:17→21:24)
[2018-03-08] MEDS: METOPROLOL TARTRATE 50 MG TAB PO SCH ×2 (10:18→21:24)
[2018-03-08] MEDS ORDERED: SULFAMETHOX W/TRIMETH(800/160MG) DS TAB PO ONE (12:30)
[2018-03-08] MEDS ORDERED: VANCOMYCIN 750 MG in D5W 5% 250 ML IV SCH (19:00)
[2018-03-08] MEDS: SULFAMETHOX W/TRIMETH(800/160MG) DS TAB PO SCH (21:23)
[2018-03-09] MEDS: IPRATROPIUM BROM 0.5 MG/2.5ML INH SOL NEB SCH ×4 (01:03→18:58)
[2018-03-09] MEDS: ALBUTEROL SULF 2.5 MG/0.5ML(0.5%) NEB SOLN NEB SCH ×4 (01:03→18:58)
[2018-03-09] MEDS: ACCU-CHEK COMFORT CURVE STRIP VI SCH ×6 (04:00→20:00)
[2018-03-09] MEDS: InsuLIN REG 1unit/0.01ml Soln (100units/ml) SC SCH ×6 (04:00→20:00)
[2018-03-09 05:00] VITALS: BP 120/80
[2018-03-09] MEDS: INSULIN LANTUS (GLARGINE) 1 /0.01ml (100units/ml) SC SCH (05:35)
[2018-03-09 06:32] LABS: Basophils # (auto) 0 uL; Basophils % (auto) 0.2 % (0.0-2.0); Eosinophils # (auto) 0.3 uL; Eosinophils % (auto) 2.2 % (0.0-7.0); Hematocrit 42.1 % (36.0-46.0); Hemoglobin 12.9 g/dL (12.2-16.2); Lymphocytes # (auto) 4.9 uL; Lymphocytes % (auto) 31.6 % (10.0-50.0); Mean Corpuscular Hemoglobin 28.9 pg (28.0-32.0); Mean Corpuscular Hgb Conc. 30.6 g/dL (32.0-36.0); Mean Corpuscular Volume 94.5 fL (80.0-100.0); Monocytes % (auto) 6.5 % (0.0-12.0); Neutrophils # (auto) 9.3 uL; Neutrophils % (auto) 59.5 % (37.0-80.0); Nucleated Red Blood Cells % 0.2 %; Platelet Count (auto) 359 10^3/uL (140-450); Red Blood Cells 4.45 10^6/uL (4.0-5.20); Red Cell Distribution Width 14.2 % (11.8-14.3); White Blood Cell 15.6 10^3/uL (4.4-10.8)
[2018-03-09 09:00] VITALS: BP 133/68
[2018-03-09] MEDS: predniSONE 5 MG TAB PO SCH (11:30)
[2018-03-09] MEDS: hydrALAZINE HCL 25 MG TAB PO SCH ×2 (11:31→22:48)
[2018-03-09] MEDS: SULFAMETHOX W/TRIMETH(800/160MG) DS TAB PO SCH ×2 (11:31→22:47)
[2018-03-09] MEDS: METOPROLOL TARTRATE 50 MG TAB PO SCH ×2 (11:31→22:47)
[2018-03-09] MEDS: ENOXAPARIN SOD 40 MG/0.4 ML SYRINGE SC SCH (11:32)
[2018-03-09] MEDS: amLODIPine BESYLATE 5 MG TAB PO SCH (11:32)
[2018-03-09 13:00] VITALS: BP 134/78
[2018-03-09 17:00] VITALS: BP 119/69
[2018-03-09 22:00] VITALS: BP 136/71
[2018-03-10] MEDS: IPRATROPIUM BROM 0.5 MG/2.5ML INH SOL NEB SCH ×4 (00:07→18:59)
[2018-03-10] MEDS: ALBUTEROL SULF 2.5 MG/0.5ML(0.5%) NEB SOLN NEB SCH ×4 (00:07→18:59)
[2018-03-10] MEDS: InsuLIN REG 1unit/0.01ml Soln (100units/ml) SC SCH ×5 (03:44→16:00)
[2018-03-10] MEDS: ACCU-CHEK COMFORT CURVE STRIP VI SCH ×5 (04:00→16:00)
[2018-03-10 05:00] VITALS: BP 105/64
[2018-03-10] MEDS: INSULIN LANTUS (GLARGINE) 1 /0.01ml (100units/ml) SC SCH (06:11)
[2018-03-10 06:49] LABS: Basophils # (auto) 0.1 uL; Basophils % (auto) 0.5 % (0.0-2.0); Eosinophils # (auto) 0.3 uL; Eosinophils % (auto) 1.6 % (0.0-7.0); Hematocrit 38.8 % (36.0-46.0); Hemoglobin 12.4 g/dL (12.2-16.2); Lymphocytes # (auto) 2.9 uL; Lymphocytes % (auto) 18.3 % (10.0-50.0); Mean Corpuscular Hemoglobin 28.9 pg (28.0-32.0); Mean Corpuscular Volume 90.3 fL (80.0-100.0); Monocytes % (auto) 6.3 % (0.0-12.0); Neutrophils # (auto) 11.4 uL; Neutrophils % (auto) 73.3 % (37.0-80.0); Platelet Count (auto) 366 10^3/uL (140-450); Red Cell Distribution Width 14.1 % (11.8-14.3); White Blood Cell 15.6 10^3/uL (4.4-10.8)
[2018-03-10 09:13] VITALS: BP 122/60
[2018-03-10] MEDS: predniSONE 5 MG TAB PO SCH (10:11)
[2018-03-10] MEDS: hydrALAZINE HCL 25 MG TAB PO SCH (10:12)
[2018-03-10] MEDS: METOPROLOL TARTRATE 50 MG TAB PO SCH (10:13)
[2018-03-10] MEDS: SULFAMETHOX W/TRIMETH(800/160MG) DS TAB PO SCH (10:13)
[2018-03-10] MEDS: ENOXAPARIN SOD 40 MG/0.4 ML SYRINGE SC SCH (10:14)
[2018-03-10] MEDS: amLODIPine BESYLATE 5 MG TAB PO SCH (10:14)
[2018-03-10 10:20] LABS: Albumin 2.7 g/dL (3.4-5.0); BUN/Creatinine Ratio 14.7; Calcium 8.1 mg/dL (8.5-10.1); Potassium 3.8 mmol/L (3.5-5.1)
[2018-03-10 10:23] LABS: Bilirubin, Total 0.3 mg/dL (0.2-1.0); Total Protein 6.1 g/dL (6.4-8.2)
[2018-03-10 13:32] VITALS: BP 149/74
[2018-03-10 14:31] VITALS: BP 149/74
[2018-03-10 16:49] VITALS: BP 121/66
== END 2018-03-10 19:10 | disposition home health service (06) | DRG 870 ==
LOC: ER 02:51 → EDBD 02:51 → TELE 02:52 → ICU WEST 07:45 → TELE-WESTW 03-05 11:55
PROVIDERS: ADMIT Nurse Practitioner Family; ATTEND Internal Medicine
PROC: 5A1955Z Respiratory Ventilation, Greater than 96 Consecutive Hours (ICD-10-PCS; principal; 2018-02-27)
PROC: 0BH17EZ Insertion of Endotracheal Airway into Trachea, Via Natural or Artificial Opening (ICD-10-PCS; 2018-02-27)
PROC: 5A09357 Assistance with Respiratory Ventilation, Less than 24 Consecutive Hours, Continuous Positive Airway Pressure (ICD-10-PCS; 2018-02-27)
DX: A41.9 Sepsis, unspecified organism (principal); J15.212 Pneumonia due to Methicillin resistant Staphylococcus aureus; N17.0 Acute kidney failure with tubular necrosis; G93.41 Metabolic encephalopathy; J96.20 Acute and chronic respiratory failure, unspecified whether with hypoxia or hypercapnia; J45.901 Unspecified asthma with (acute) exacerbation; J44.0 Chronic obstructive pulmonary disease with (acute) lower respiratory infection; N18.9 Chronic kidney disease, unspecified; I12.9 Hypertensive chronic kidney disease with stage 1 through stage 4 chronic kidney disease, or unspecified chronic kidney disease; E11.22 Type 2 diabetes mellitus with diabetic chronic kidney disease; E11.649 Type 2 diabetes mellitus with hypoglycemia without coma; E11.65 Type 2 diabetes mellitus with hyperglycemia; J39.8 Other specified diseases of upper respiratory tract; Z22.322 Carrier or suspected carrier of Methicillin resistant Staphylococcus aureus; Z91.14 Patient's other noncompliance with medication regimen; Z93.0 Tracheostomy status; Z79.82 Long term (current) use of aspirin; Z79.4 Long term (current) use of insulin; Z82.49 Family history of ischemic heart disease and other diseases of the circulatory system; Z83.3 Family history of diabetes mellitus; Z84.1 Family history of disorders of kidney and ureter
CPT/HCPCS: 31500; 36415; 36600; 70450; 70490; 71045; 71250; 80048; 80053; 80202; 80307; 81001; 82010; 82805; 82962; 83036; 83605; 83735; 83880; 84484; 85025; 85610; 85730; 87040; 87070; 87077; 87081; 87086; 87186; 87205; 87804; 93005; 93306; 94002; 94003; 94640; 94644; 94660; 96361; 96365; 96375; 97110; 97116; 97163; 97530; 99291; C9113; J0330; J1815; J2250; J2543; J2704; J3480; J7060

== ENCOUNTER 2018-03-22 00:17 | Inpatient (IN) | payer MEDICARE, OTHER ==
[~2018-03-22] VITALS: Ht 152.4 cm; Wt 58.0 kg
[2018-03-22 01:12] LABS: Basophils # (auto) 0.1 uL; Eosinophils # (auto) 0 uL; Monocytes # (auto) 0.8 uL
[2018-03-22 01:13] LABS: Basophils % (auto) 0.7 % (0.0-2.0); Hematocrit 46.7 % (36.0-46.0); Hemoglobin 15.6 g/dL (12.2-16.2); Lymphocytes # (auto) 2.5 uL; Lymphocytes % (auto) 19.6 % (10.0-50.0); Mean Corpuscular Hemoglobin 29.3 pg (28.0-32.0); Mean Corpuscular Hgb Conc. 33.4 g/dL (32.0-36.0); Mean Corpuscular Volume 87.6 fL (80.0-100.0); Monocytes % (auto) 6.5 % (0.0-12.0); Neutrophils # (auto) 9.2 uL; Neutrophils % (auto) 73.2 % (37.0-80.0); Red Blood Cells 5.34 10^6/uL (4.0-5.20); White Blood Cell 12.6 10^3/uL (4.4-10.8)
[2018-03-22 01:20] LABS: Platelet Count (auto) 616 10^3/uL (140-450)
[2018-03-22 01:40] LABS: Albumin 4.1 g/dL (3.4-5.0); BUN/Creatinine Ratio 15.2; Potassium 4.5 mmol/L (3.5-5.1)
[2018-03-22 01:44] LABS: Bilirubin, Total 1.2 mg/dL (0.2-1.0)
[2018-03-22] MEDS ORDERED: SODIUM CHLORIDE 0.9% 1,000 ML IV ONE (02:00)
[2018-03-22] MEDS ORDERED: ONDANSETRON HCL 4 MG/2 ML VIAL ONE (02:23)
[2018-03-22] MEDS ORDERED: ONDANSETRON HCL 4 MG/2 ML VIAL IV ONE (02:30)
[2018-03-22] MEDS ORDERED: MORPHINE SULFATE 4 MG/ML SYR/VIAL IV ONE (02:30)
[2018-03-22] MEDS ORDERED: cefTRIAXone 1GM/50ML D5W 50 ML IV ONE ×2 (02:35→02:45)
[2018-03-22] MEDS ORDERED: InsuLIN R (HUMAN) 100 UNITS in SODIUM CHL 0.9% 99 ML IV SCH (09:02)
[2018-03-22] MEDS ORDERED: DEXTROSE (50%) 50ML SYRG IV PRN ×2 (09:15→10:15)
[2018-03-22] MEDS ORDERED: cloNIDine HCL 0.1 MG TAB PO PRN (09:15)
[2018-03-22] MEDS: SODIUM CHLORIDE 0.9% 1,000 ML IV SCH ×4 (09:29→23:32)
[2018-03-22] MEDS ORDERED: DOCUSATE SOD 100 MG CAP PO PRN (09:30)
[2018-03-22] MEDS ORDERED: ACETAMINOPHEN 325 MG TAB PO PRN (09:30)
[2018-03-22] MEDS ORDERED: ONDANSETRON HCL 4 MG/2 ML VIAL IV PRN (09:30)
[2018-03-22] MEDS ORDERED: NITROGLYCERIN 0.4 MG SL TAB SL PRN (09:30)
[2018-03-22] MEDS ORDERED: MORPHINE SULFATE 4 MG/ML SYR/VIAL IV PRN (09:30)
[2018-03-22] MEDS ORDERED: TEMAZEPAM 15 MG CAP PO PRN (09:30)
[2018-03-22 09:31] LABS: Basophils # (auto) 0.1 uL; Eosinophils # (auto) 0 uL; Eosinophils % (auto) 0.1 % (0.0-7.0); Hemoglobin 13.5 g/dL (12.2-16.2); Neutrophils % (auto) 61.4 % (37.0-80.0); Red Cell Distribution Width 14.6 % (11.8-14.3)
[2018-03-22 09:33] LABS: Basophils % (auto) 0.8 % (0.0-2.0); Hematocrit 40.8 % (36.0-46.0); Lymphocytes # (auto) 3.2 uL; Lymphocytes % (auto) 28.1 % (10.0-50.0); Mean Corpuscular Hemoglobin 29.1 pg (28.0-32.0); Mean Corpuscular Volume 88.2 fL (80.0-100.0); Monocytes # (auto) 1.1 uL; Monocytes % (auto) 9.6 % (0.0-12.0); Nucleated Red Blood Cells % 0.1 %; Platelet Count (auto) 527 10^3/uL (140-450); Red Blood Cells 4.63 10^6/uL (4.0-5.20); White Blood Cell 11.3 10^3/uL (4.4-10.8)
[2018-03-22 09:50] LABS: BUN/Creatinine Ratio 19.8; Calcium 8.7 mg/dL (8.5-10.1); Magnesium 2.2 mg/dL (1.6-2.6); Phosphorus 3.9 mg/dL (2.5-4.90); Potassium 4.4 mmol/L (3.5-5.1)
[2018-03-22] MEDS: FERROUS SULFATE 325 MG TAB PO SCH (09:59)
[2018-03-22] MEDS: hydrALAZINE HCL 25 MG TAB PO SCH ×2 (09:59→22:00)
[2018-03-22] MEDS: OXYBUTYNIN CHL 5 MG TAB PO SCH ×2 (10:00→23:36)
[2018-03-22] MEDS: METOPROLOL TARTRATE 50 MG TAB PO SCH ×2 (10:00→23:37)
[2018-03-22] MEDS: ASCORBIC ACID 500 MG TAB PO SCH (10:00)
[2018-03-22] MEDS: amLODIPine BESYLATE 5 MG TAB PO SCH (10:00)
[2018-03-22] MEDS: ASPirin-EC 81 mg tab PO SCH (10:00)
[2018-03-22] MEDS ORDERED: FAMOTIDINE 20 MG TAB PO SCH ×2 (10:00)
[2018-03-22] MEDS ORDERED: PATIENTS OWN MEDICATION IN SCH (10:00)
[2018-03-22] MEDS: AZITHROMYCIN 250 MG TAB PO SCH (10:00)
[2018-03-22] MEDS: MULTIPLE VITAMIN TAB PO SCH (10:00)
[2018-03-22] MEDS: BUDESONIDE (INHALATION) 0.5 MG/2 ML NEB NEB SCH ×2 (10:29→22:23)
[2018-03-22] MEDS ORDERED: ACCU-CHEK COMFORT CURVE STRIP VI SCH (10:30)
[2018-03-22] MEDS: InsuLIN REG 1unit/0.01ml Soln (100units/ml) SC SCH ×3 (11:29→23:37)
[2018-03-22] MEDS: ACCU-CHEK COMFORT CURVE STRIP VI SCH ×3 (11:30→23:38)
[2018-03-22] MEDS ORDERED: ALBUTEROL SULF 2.5 MG/0.5ML(0.5%) NEB SOLN NEB SCH (12:00)
[2018-03-22 13:00] VITALS: BP 109/70
[2018-03-22 13:01] VITALS: BP 109/70
[2018-03-22] MEDS ORDERED: SODIUM CHLORIDE 0.9% 1,000 ML IV SCH (13:02)
[2018-03-22 15:18] VITALS: BP 109/70
[2018-03-22 17:00] VITALS: BP 103/64
[2018-03-22] MEDS: HYDROcodone-ACET 5/325MG TAB PO PRN (18:55)
[2018-03-22 20:12] LABS: Calcium 7.9 mg/dL (8.5-10.1); Potassium 3.9 mmol/L (3.5-5.1)
[2018-03-22 20:20] LABS: BUN/Creatinine Ratio 18.1
[2018-03-22 20:24] LABS: Lactic Acid w/Reflex 6.1 mmol/L (0.4-2.0)
[2018-03-22 22:00] VITALS: BP 116/62
[2018-03-22] MEDS: ALBUTEROL SULF 2.5 MG/0.5ML(0.5%) NEB SOLN NEB PRN (22:23)
[2018-03-22] MEDS: ATORVASTATIN 20 MG TAB PO SCH (23:36)
[2018-03-22] MEDS: INSULIN LANTUS (GLARGINE) 1 /0.01ml (100units/ml) SC SCH (23:38)
[2018-03-23] MEDS: cefTRIAXone 1GM/50ML D5W 50 ML IV SCH (03:15)
[2018-03-23 05:00] VITALS: BP 109/55
[2018-03-23] MEDS: SODIUM CHLORIDE 0.9% 1,000 ML IV SCH ×3 (05:08→17:21)
[2018-03-23 06:21] LABS: Basophils # (auto) 0 uL; Basophils % (auto) 0.3 % (0.0-2.0); Eosinophils # (auto) 0.1 uL; Eosinophils % (auto) 1.1 % (0.0-7.0); Hematocrit 33.8 % (36.0-46.0); Hemoglobin 11.1 g/dL (12.2-16.2); Lymphocytes # (auto) 2.4 uL; Lymphocytes % (auto) 31.6 % (10.0-50.0); Mean Corpuscular Hemoglobin 29.6 pg (28.0-32.0); Mean Corpuscular Hgb Conc. 32.9 g/dL (32.0-36.0); Mean Corpuscular Volume 89.9 fL (80.0-100.0); Monocytes # (auto) 0.7 uL; Monocytes % (auto) 9.2 % (0.0-12.0); Neutrophils # (auto) 4.3 uL; Neutrophils % (auto) 57.8 % (37.0-80.0); Nucleated Red Blood Cells % 0.1 %; Platelet Count (auto) 411 10^3/uL (140-450); Red Blood Cells 3.76 10^6/uL (4.0-5.20); Red Cell Distribution Width 14.8 % (11.8-14.3); White Blood Cell 7.5 10^3/uL (4.4-10.8)
[2018-03-23 06:35] LABS: Potassium 3.6 mmol/L (3.5-5.1)
[2018-03-23] MEDS: ACCU-CHEK COMFORT CURVE STRIP VI SCH ×4 (06:37→22:31)
[2018-03-23] MEDS: InsuLIN REG 1unit/0.01ml Soln (100units/ml) SC SCH ×4 (06:38→22:30)
[2018-03-23] MEDS: INSULIN LANTUS (GLARGINE) 1 /0.01ml (100units/ml) SC SCH ×2 (06:38→22:31)
[2018-03-23 06:42] LABS: Albumin 2.7 g/dL (3.4-5.0); BUN/Creatinine Ratio 20.7; Bilirubin, Total 0.8 mg/dL (0.2-1.0)
[2018-03-23 08:34] LABS: Urine Bacteria FEW /hpf (None Seen); Urine Blood Negative /uL (Negative); Urine Specific Gravity 1.024 (1.001-1.035); Urine WBC 129 /hpf (0 - 5)
[2018-03-23 09:00] VITALS: BP 121/75
[2018-03-23] MEDS: BUDESONIDE (INHALATION) 0.5 MG/2 ML NEB NEB SCH ×2 (09:31→18:49)
[2018-03-23] MEDS: ALBUTEROL SULF 2.5 MG/0.5ML(0.5%) NEB SOLN NEB PRN ×2 (09:32→18:49)
[2018-03-23] MEDS: OXYBUTYNIN CHL 5 MG TAB PO SCH ×2 (09:46→22:27)
[2018-03-23] MEDS: HYDROcodone-ACET 5/325MG TAB PO PRN (09:47)
[2018-03-23] MEDS: FERROUS SULFATE 325 MG TAB PO SCH (09:47)
[2018-03-23] MEDS: MULTIPLE VITAMIN TAB PO SCH (09:48)
[2018-03-23] MEDS: FAMOTIDINE 20 MG TAB PO SCH ×2 (09:48→22:29)
[2018-03-23] MEDS: AZITHROMYCIN 250 MG TAB PO SCH (09:48)
[2018-03-23] MEDS: METOPROLOL TARTRATE 50 MG TAB PO SCH ×2 (09:49→22:28)
[2018-03-23] MEDS: amLODIPine BESYLATE 5 MG TAB PO SCH (09:49)
[2018-03-23] MEDS: hydrALAZINE HCL 25 MG TAB PO SCH ×2 (09:50→22:00)
[2018-03-23] MEDS: ASPirin-EC 81 mg tab PO SCH (09:50)
[2018-03-23] MEDS: ASCORBIC ACID 500 MG TAB PO SCH (09:50)
[2018-03-23] MEDS ORDERED: THROAT LOZENGES(CEPASTAT) MT PRN (12:45)
[2018-03-23 13:00] VITALS: BP 116/59
[2018-03-23 17:00] VITALS: BP 130/72
[2018-03-23 21:30] VITALS: BP 124/66
[2018-03-23] MEDS: ATORVASTATIN 20 MG TAB PO SCH (22:28)
[2018-03-24] MEDS: SODIUM CHLORIDE 0.9% 1,000 ML IV SCH ×4 (00:08→20:22)
[2018-03-24] MEDS: cefTRIAXone 1GM/50ML D5W 50 ML IV SCH (03:06)
[2018-03-24 05:00] VITALS: BP 126/73
[2018-03-24] MEDS: ACCU-CHEK COMFORT CURVE STRIP VI SCH ×4 (06:27→22:22)
[2018-03-24] MEDS: INSULIN LANTUS (GLARGINE) 1 /0.01ml (100units/ml) SC SCH (06:27)
[2018-03-24] MEDS: InsuLIN REG 1unit/0.01ml Soln (100units/ml) SC SCH ×3 (06:28→17:00)
[2018-03-24 09:00] VITALS: BP 137/66
[2018-03-24] MEDS ORDERED: VANCOMYCIN PER PHARMACY 0 MG IV SCH (09:30)
[2018-03-24] MEDS ORDERED: DEXTROSE (50%) 50ML SYRG IV PRN (09:45)
[2018-03-24] MEDS: hydrALAZINE HCL 25 MG TAB PO SCH ×2 (10:00→22:00)
[2018-03-24] MEDS: FAMOTIDINE 20 MG TAB PO SCH ×2 (10:00→22:22)
[2018-03-24] MEDS: ASPirin-EC 81 mg tab PO SCH (10:00)
[2018-03-24] MEDS: amLODIPine BESYLATE 5 MG TAB PO SCH (10:00)
[2018-03-24] MEDS ORDERED: ACCU-CHEK COMFORT CURVE STRIP VI SCH (10:00)
[2018-03-24] MEDS: VANCOMYCIN 1GM/250ML 250 ML IV SCH (11:12)
[2018-03-24] MEDS: ASCORBIC ACID 500 MG TAB PO SCH (11:14)
[2018-03-24] MEDS: MULTIPLE VITAMIN TAB PO SCH (11:14)
[2018-03-24] MEDS: FERROUS SULFATE 325 MG TAB PO SCH (11:14)
[2018-03-24] MEDS: OXYBUTYNIN CHL 5 MG TAB PO SCH ×2 (11:15→22:22)
[2018-03-24] MEDS: METOPROLOL TARTRATE 50 MG TAB PO SCH ×2 (11:17→22:22)
[2018-03-24 11:37] LABS: BUN/Creatinine Ratio 3.9; Calcium 8.5 mg/dL (8.5-10.1); Potassium 3.8 mmol/L (3.5-5.1)
[2018-03-24 11:39] LABS: Bilirubin, Total 0.4 mg/dL (0.2-1.0)
[2018-03-24] MEDS: ALBUTEROL SULF 2.5 MG/0.5ML(0.5%) NEB SOLN NEB PRN ×2 (12:52→18:45)
[2018-03-24] MEDS: BUDESONIDE (INHALATION) 0.5 MG/2 ML NEB NEB SCH ×2 (12:52→18:45)
[2018-03-24 13:00] VITALS: BP 159/76
[2018-03-24 17:00] VITALS: BP 109/53
[2018-03-24 21:39] VITALS: BP 121/66
[2018-03-24] MEDS: ATORVASTATIN 20 MG TAB PO SCH (22:22)
[2018-03-25] MEDS: SODIUM CHLORIDE 0.9% 1,000 ML IV SCH ×2 (04:39→09:42)
[2018-03-25 04:55] VITALS: BP 137/89
[2018-03-25] MEDS: InsuLIN REG 1unit/0.01ml Soln (100units/ml) SC SCH ×3 (06:24→18:08)
[2018-03-25] MEDS: ACCU-CHEK COMFORT CURVE STRIP VI SCH ×4 (06:24→23:02)
[2018-03-25 06:57] LABS: Potassium 3.6 mmol/L (3.5-5.1)
[2018-03-25 07:04] LABS: BUN/Creatinine Ratio 4.5; Bilirubin, Total 0.5 mg/dL (0.2-1.0); Calcium 8.5 mg/dL (8.5-10.1); Total Protein 6.7 g/dL (6.4-8.2)
[2018-03-25 09:00] VITALS: BP 147/71
[2018-03-25] MEDS: ALBUTEROL SULF 2.5 MG/0.5ML(0.5%) NEB SOLN NEB PRN ×2 (09:38→18:43)
[2018-03-25] MEDS: BUDESONIDE (INHALATION) 0.5 MG/2 ML NEB NEB SCH ×2 (09:38→18:43)
[2018-03-25] MEDS: ASPirin-EC 81 mg tab PO SCH (10:32)
[2018-03-25] MEDS: hydrALAZINE HCL 25 MG TAB PO SCH ×2 (10:32→22:37)
[2018-03-25] MEDS: FAMOTIDINE 20 MG TAB PO SCH ×2 (10:32→22:36)
[2018-03-25] MEDS: ASCORBIC ACID 500 MG TAB PO SCH (10:33)
[2018-03-25] MEDS: MULTIPLE VITAMIN TAB PO SCH (10:33)
[2018-03-25] MEDS: FERROUS SULFATE 325 MG TAB PO SCH (10:33)
[2018-03-25] MEDS: METOPROLOL TARTRATE 50 MG TAB PO SCH ×2 (10:33→22:38)
[2018-03-25] MEDS: amLODIPine BESYLATE 5 MG TAB PO SCH (10:34)
[2018-03-25] MEDS: OXYBUTYNIN CHL 5 MG TAB PO SCH ×2 (10:34→22:35)
[2018-03-25] MEDS: cefTRIAXone 1GM/50ML D5W 50 ML IV SCH (12:54)
[2018-03-25 13:00] VITALS: BP 129/77
[2018-03-25] MEDS: VANCOMYCIN 1GM/250ML 250 ML IV SCH (13:45)
[2018-03-25 17:00] VITALS: BP 127/70
[2018-03-25 21:30] VITALS: BP 125/77
[2018-03-25] MEDS: ATORVASTATIN 20 MG TAB PO SCH (22:35)
[2018-03-26 05:00] VITALS: BP 137/70
[2018-03-26 05:45] LABS: Albumin 2.7 g/dL (3.4-5.0); Calcium 8.3 mg/dL (8.5-10.1); Potassium 4.1 mmol/L (3.5-5.1)
[2018-03-26 05:48] LABS: BUN/Creatinine Ratio 7.6; Bilirubin, Total 0.4 mg/dL (0.2-1.0); Total Protein 6.2 g/dL (6.4-8.2)
[2018-03-26] MEDS: ACCU-CHEK COMFORT CURVE STRIP VI SCH ×2 (06:15→11:30)
[2018-03-26] MEDS: InsuLIN REG 1unit/0.01ml Soln (100units/ml) SC SCH ×2 (06:24→11:30)
[2018-03-26 09:00] VITALS: BP 124/77
[2018-03-26] MEDS: cefTRIAXone 1GM/50ML D5W 50 ML IV SCH (10:02)
[2018-03-26] MEDS: FERROUS SULFATE 325 MG TAB PO SCH (10:02)
[2018-03-26] MEDS: hydrALAZINE HCL 25 MG TAB PO SCH (10:06)
[2018-03-26] MEDS: OXYBUTYNIN CHL 5 MG TAB PO SCH (10:06)
[2018-03-26] MEDS: MULTIPLE VITAMIN TAB PO SCH (10:07)
[2018-03-26] MEDS: METOPROLOL TARTRATE 50 MG TAB PO SCH ×2 (10:07→13:16)
[2018-03-26] MEDS: ASPirin-EC 81 mg tab PO SCH (10:07)
[2018-03-26] MEDS: ASCORBIC ACID 500 MG TAB PO SCH (10:08)
[2018-03-26] MEDS: FAMOTIDINE 20 MG TAB PO SCH (10:08)
[2018-03-26] MEDS: amLODIPine BESYLATE 5 MG TAB PO SCH (10:08)
[2018-03-26] MEDS: BUDESONIDE (INHALATION) 0.5 MG/2 ML NEB NEB SCH (10:10)
[2018-03-26] MEDS: ALBUTEROL SULF 2.5 MG/0.5ML(0.5%) NEB SOLN NEB PRN (10:10)
[2018-03-26 10:53] VITALS: BP 124/77
[2018-03-26] MEDS: VANCOMYCIN 1GM/250ML 250 ML IV SCH (11:00)
[2018-03-26 13:00] VITALS: BP 117/58
== END 2018-03-26 12:45 | disposition home or self-care (01) | DRG 871 ==
LOC: ER 00:20 → OVERFLOW 05:39 → TELE-CENTR 12:16
PROVIDERS: ADMIT Nurse Practitioner Family; ATTEND Family Medicine
DX: A41.9 Sepsis, unspecified organism (principal); E11.10 Type 2 diabetes mellitus with ketoacidosis without coma; J96.20 Acute and chronic respiratory failure, unspecified whether with hypoxia or hypercapnia; J18.9 Pneumonia, unspecified organism; N17.9 Acute kidney failure, unspecified; E87.1 Hypo-osmolality and hyponatremia; J44.0 Chronic obstructive pulmonary disease with (acute) lower respiratory infection; J44.1 Chronic obstructive pulmonary disease with (acute) exacerbation; N39.0 Urinary tract infection, site not specified; N18.4 Chronic kidney disease, stage 4 (severe); E11.22 Type 2 diabetes mellitus with diabetic chronic kidney disease; J20.9 Acute bronchitis, unspecified; J45.909 Unspecified asthma, uncomplicated; I13.10 Hypertensive heart and chronic kidney disease without heart failure, with stage 1 through stage 4 chronic kidney disease, or unspecified chronic kidney disease; E11.21 Type 2 diabetes mellitus with diabetic nephropathy; E86.0 Dehydration; D72.829 Elevated white blood cell count, unspecified; F41.9 Anxiety disorder, unspecified; G43.A0 Cyclical vomiting, in migraine, not intractable; Z93.0 Tracheostomy status; Z99.81 Dependence on supplemental oxygen
CPT/HCPCS: 36415; 36600; 71045; 80048; 80053; 81001; 82010; 82805; 82962; 83036; 83605; 83735; 83880; 83930; 84100; 84443; 84484; 85025; 87040; 87070; 87081; 87086; 87880; 93005; 94640; 97110; 97116; 97530; G0378; J0696; J1815; J2405

== ENCOUNTER → 2018-03-30 | Outpatient (CLI) | payer MEDICARE, OTHER ==
[~2018-03-30] MED LIST changes: -ASCO500T11 PO; -FLUT1INH6 IN
[2018-03-30 10:21] LABS: Cholesterol 171 mg/dL (< 200); HDL Cholesterol 64 mg/dL (40-59); LDL Cholesterol 93 mg/dL (< 100); Triglycerides 169 mg/dL (< 150)
== END | disposition home or self-care (01) ==
LOC: LAB 07:49
PROVIDERS: ATTEND Internal Medicine
DX: E11.9 Type 2 diabetes mellitus without complications (principal)
CPT/HCPCS: 36415; 80061; 82043

== ENCOUNTER → 2018-04-13 | Outpatient (CLI) | payer MEDICARE, OTHER ==
[2018-04-13 10:32] LABS: Potassium 4.5 mmol/L (3.5-5.1)
[2018-04-13 10:41] LABS: Albumin 3.7 g/dL (3.4-5.0); BUN/Creatinine Ratio 12.5; Bilirubin, Total 0.7 mg/dL (0.2-1.0); Calcium 9.2 mg/dL (8.5-10.1); Total Protein 7.5 g/dL (6.4-8.2)
== END | disposition home or self-care (01) ==
LOC: LAB 08:53
DX: E11.9 Type 2 diabetes mellitus without complications (principal)
CPT/HCPCS: 36415; 80053; 83036

== ENCOUNTER → 2018-05-11 | Outpatient (CLI) | payer MEDICARE, OTHER | END | disposition home or self-care (01) | LOC: LAB 14:34 | DX: R13.10 Dysphagia, unspecified (principal) | CPT/HCPCS: 36415; 82565; 84520 ==

== ENCOUNTER → 2018-07-25 | Outpatient (CLI) | payer MEDICARE, OTHER ==
[~2018-07-25] MED LIST changes: -MET50T PO
[2018-07-25 13:12] LABS: Basophils # (auto) 0 uL; Basophils % (auto) 0.4 % (0.0-2.0); Eosinophils # (auto) 0 uL; Eosinophils % (auto) 0.5 % (0.0-7.0); Hematocrit 40.6 % (36.0-46.0); Hemoglobin 13.1 g/dL (12.2-16.2); Lymphocytes # (auto) 2.2 uL; Lymphocytes % (auto) 25.2 % (10.0-50.0); Mean Corpuscular Hemoglobin 29.6 pg (28.0-32.0); Mean Corpuscular Hgb Conc. 32.3 g/dL (32.0-36.0); Mean Corpuscular Volume 91.6 fL (80.0-100.0); Monocytes # (auto) 0.4 uL; Monocytes % (auto) 4.4 % (0.0-12.0); Neutrophils # (auto) 6.2 uL; Neutrophils % (auto) 69.5 % (37.0-80.0); Platelet Count (auto) 423 10^3/uL (140-450); Red Blood Cells 4.43 10^6/uL (4.0-5.20); Red Cell Distribution Width 14.2 % (11.8-14.3); White Blood Cell 8.9 10^3/uL (4.4-10.8)
[2018-07-25 13:33] LABS: Albumin 3.8 g/dL (3.4-5.0); Bilirubin, Direct 0.2 mg/dL (0-0.2)
[2018-07-25 13:36] LABS: Bilirubin, Total 0.5 mg/dL (0.2-1.0)
== END | disposition home or self-care (01) ==
LOC: LAB 09:51
PROVIDERS: ATTEND Internal Medicine
DX: Z12.11 Encounter for screening for malignant neoplasm of colon (principal); I12.9 Hypertensive chronic kidney disease with stage 1 through stage 4 chronic kidney disease, or unspecified chronic kidney disease; E11.22 Type 2 diabetes mellitus with diabetic chronic kidney disease; N18.9 Chronic kidney disease, unspecified
CPT/HCPCS: 36415; 80061; 80076; 83036; 85025

== ENCOUNTER → 2018-08-19 | Outpatient (CLI) | payer MEDICARE, OTHER | END | disposition home or self-care (01) | LOC: LAB 08:29 | PROVIDERS: ATTEND Internal Medicine | DX: Z12.11 Encounter for screening for malignant neoplasm of colon (principal); I12.9 Hypertensive chronic kidney disease with stage 1 through stage 4 chronic kidney disease, or unspecified chronic kidney disease; E11.22 Type 2 diabetes mellitus with diabetic chronic kidney disease; N18.9 Chronic kidney disease, unspecified; J44.9 Chronic obstructive pulmonary disease, unspecified; Z87.891 Personal history of nicotine dependence | CPT/HCPCS: 82270 ==

== ENCOUNTER 2020-12-01 12:44 | Inpatient (IN) | payer MEDICARE, MEDICAID ==
[~2020-12-01] VITALS: Ht 180.3 cm; Wt 75.8 kg
[~2020-12-01 12:44] MED LIST changes: -ASPI-231 PO; +ASPI1TAB20 PO
[2020-12-01 14:14] LABS: Basophils # (auto) 0 10 ^3/uL (0-0.2); Basophils % (auto) 0.2 % (0.0-2.0); Eosinophils # (auto) 0 10 ^3/uL (0-0.8); Hematocrit 45.8 % (36.0-46.0); Hemoglobin 14.9 g/dL (12.2-16.2); Lymphocytes # (auto) 1.9 10 ^3/uL (0.4-5.4); Lymphocytes % (auto) 9.7 % (10.0-50.0); Mean Corpuscular Hemoglobin 29.6 pg (28.0-32.0); Mean Corpuscular Hgb Conc. 32.6 g/dL (32.0-36.0); Mean Corpuscular Volume 90.7 fL (80.0-100.0); Monocytes # (auto) 0.9 10 ^3/uL (0-1.3); Monocytes % (auto) 4.5 % (0.0-12.0); Neutrophils # (auto) 16.8 10 ^3/uL (1.6-8.6); Neutrophils % (auto) 85.6 % (37.0-80.0); Red Blood Cells 5.05 10^6/uL (4.0-5.20); Red Cell Distribution Width 14.3 % (11.8-14.3); White Blood Cell 19.7 10^3/uL (4.4-10.8)
[2020-12-01 14:33] LABS: Anion Gap 21 (5-15); Blood Urea Nitrogen 54 mg/dL (7-18); Carbon Dioxide 15 mmol/L (21-32); Chloride 92 mmol/L (98-107); Potassium 5.2 mmol/L (3.5-5.1); Sodium 128 mmol/L (136-145)
[2020-12-01 14:41] LABS: Alanine Aminotransferase 41 U/L (13-56); Alkaline Phosphatase 120 U/L (45-117); Aspartate Aminotransferase 34 U/L (15-37); BUN/Creatinine Ratio 25.2; Bilirubin, Total 1.2 mg/dL (0.2-1.0); GFR African American 30 mL/min; GFR Non-African American 25 mL/min; Total Protein 8.5 g/dL (6.4-8.2)
[2020-12-01 14:46] LABS: Glucose 677 mg/dL (74-106)
[2020-12-01] MEDS ORDERED: ONDANSETRON HCL 4 MG/2 ML VIAL ONE (15:58)
[2020-12-01] MEDS ORDERED: MORPHINE SULFATE INJECTION 2 MG/ML SYRG ONE (15:59)
[2020-12-01] MEDS ORDERED: InsuLIN REG 1unit/0.01ml Soln (100units/ml) IV ONE (16:15)
[2020-12-01] MEDS ORDERED: ONDANSETRON HCL 4 MG/2 ML VIAL IV ONE (16:15)
[2020-12-01] MEDS ORDERED: MORPHINE SULFATE INJECTION 2 MG/ML SYRG IV ONE (16:15)
[2020-12-01] MEDS ORDERED: InsuLIN R (HUMAN) 100 UNITS in SODIUM CHL 0.9% 99 ML IV SCH ×3 (17:00→21:30)
[2020-12-01] MEDS ORDERED: DEXTROSE (50%) 50ML SYRG IV PRN (17:00)
[2020-12-01] MEDS: SODIUM CHLORIDE 0.9% 1,000 ML IV SCH ×3 (17:54→23:00)
[2020-12-01] MEDS: ACCU-CHEK COMFORT CURVE STRIP VI SCH ×4 (17:55→22:30)
[2020-12-01] MEDS ORDERED: ACETAMINOPHEN 500 MG TAB PO PRN (18:30)
[2020-12-01] MEDS: INSULIN LANTUS (GLARGINE) 1 /0.01ml (100units/ml) SC SCH (18:30)
[2020-12-01] MEDS ORDERED: MORPHINE SULFATE INJECTION 2 MG/ML SYRG IV PRN (18:30)
[2020-12-01] MEDS ORDERED: NITROGLYCERIN 0.4 MG SL TAB SL PRN (18:30)
[2020-12-01] MEDS ORDERED: ALBUTEROL SULF 2.5 MG/0.5ML(0.5%) NEB SOLN NEB PRN (18:30)
[2020-12-01] MEDS ORDERED: IPRATROPIUM BROM 0.5 MG/2.5ML INH SOL NEB PRN (18:30)
[2020-12-01] MEDS ORDERED: ONDANSETRON HCL 4 MG/2 ML VIAL IV PRN (18:30)
[2020-12-01] MEDS: MORPHINE SULFATE INJECTION 2 MG/ML SYRG IV PRN (18:59)
[2020-12-01 20:18] LABS: Anion Gap 30 (5-15); BUN/Creatinine Ratio 23.3; Blood Urea Nitrogen 59 mg/dL (7-18); Calcium 8.6 mg/dL (8.5-10.1); Chloride 92 mmol/L (98-107); GFR African American 25 mL/min; GFR Non-African American 20 mL/min; Magnesium 2.4 mg/dL (1.6-2.6); Phosphorus 5.8 mg/dL (2.5-4.90); Sodium 129 mmol/L (136-145)
[2020-12-01 20:19] VITALS: BP 143/59
[2020-12-01 20:36] LABS: Carbon Dioxide 7 mmol/L (21-32); Glucose 813 mg/dL (74-106); Potassium 5.8 mmol/L (3.5-5.1)
[2020-12-01 21:00] VITALS: BP 153/69
[2020-12-01] MEDS ORDERED: SODIUM CHLORIDE 0.9% 1,000 ML IV SCH (21:00)
[2020-12-01 21:44] LABS: Calcium 8.5 mg/dL (8.5-10.1); Potassium 4.8 mmol/L (3.5-5.1)
[2020-12-01 22:00] VITALS: BP 161/65
[2020-12-01] MEDS ORDERED: METO-159 PO (22:17)
[2020-12-01 23:00] VITALS: BP 154/70
[2020-12-01 23:15] LABS: Urine Bacteria FEW /hpf (None Seen); Urine Blood Negative /uL (Negative); Urine Hyaline Cast FEW /lpf (0 - 2); Urine Specific Gravity 1.021 (1.001-1.035); Urine WBC 4 /hpf (0 - 5)
[2020-12-02] VITALS (17 sets, daily range): BP systolic 118–171; BP diastolic 57–87
[2020-12-02] MEDS: ACCU-CHEK COMFORT CURVE STRIP VI SCH ×11 (01:30→20:12)
[2020-12-02] MEDS ORDERED: InsuLIN R (HUMAN) 100 UNITS in SODIUM CHL 0.9% 99 ML IV SCH ×2 (03:15→05:30)
[2020-12-02] MEDS: MORPHINE SULFATE INJECTION 2 MG/ML SYRG IV PRN ×2 (05:06→10:40)
[2020-12-02 05:23] LABS: Basophils # (auto) 0.1 10 ^3/uL (0-0.2); Basophils % (auto) 0.3 % (0.0-2.0); Eosinophils # (auto) 0 10 ^3/uL (0-0.8); Eosinophils % (auto) 0.1 % (0.0-7.0); Hematocrit 47.2 % (36.0-46.0); Hemoglobin 15.9 g/dL (12.2-16.2); Lymphocytes # (auto) 2.7 10 ^3/uL (0.4-5.4); Lymphocytes % (auto) 15.3 % (10.0-50.0); Mean Corpuscular Hgb Conc. 33.8 g/dL (32.0-36.0); Mean Corpuscular Volume 88.7 fL (80.0-100.0); Monocytes # (auto) 2.2 10 ^3/uL (0-1.3); Monocytes % (auto) 12.5 % (0.0-12.0); Neutrophils # (auto) 12.8 10 ^3/uL (1.6-8.6); Neutrophils % (auto) 71.8 % (37.0-80.0); Nucleated Red Blood Cells % 0.2 %; Red Blood Cells 5.31 10^6/uL (4.0-5.20); Red Cell Distribution Width 13.5 % (11.8-14.3); White Blood Cell 17.8 10^3/uL (4.4-10.8)
[2020-12-02 05:39] LABS: Potassium 4.4 mmol/L (3.5-5.1)
[2020-12-02 05:52] LABS: Albumin 3.8 g/dL (3.4-5.0); BUN/Creatinine Ratio 26.2; Calcium 8.7 mg/dL (8.5-10.1); Magnesium 2.8 mg/dL (1.6-2.6); Phosphorus 2.7 mg/dL (2.5-4.90); Total Protein 8.4 g/dL (6.4-8.2)
[2020-12-02] MEDS: SODIUM CHLORIDE 0.9% 1,000 ML IV SCH ×4 (06:22→23:00)
[2020-12-02] MEDS ORDERED: D5W 5% 1,000 ML IV SCH (08:30)
[2020-12-02] MEDS ORDERED: PANTOPRAZOLE 40 MG/10 ML VIAL INJ IV SCH (10:00)
[2020-12-02] MEDS: INSULIN LANTUS (GLARGINE) 1 /0.01ml (100units/ml) SC SCH (10:42)
[2020-12-02] MEDS ORDERED: DEXTROSE (50%) 50ML SYRG IV PRN (13:00)
[2020-12-02] MEDS ORDERED: NYSTATIN (MOUTH-THROAT) 500,000 UNITS/5 ML SUSP MT ONE (13:00)
[2020-12-02] MEDS ORDERED: ACYCLOVIR 400 MG TAB PO ONE (13:00)
[2020-12-02] MEDS: InsuLIN REG 1unit/0.01ml Soln (100units/ml) SC SCH ×3 (13:45→20:19)
[2020-12-02] MEDS ORDERED: ACYCLOVIR 400 MG TAB PO SCH (14:00)
[2020-12-02] MEDS: NYSTATIN (MOUTH-THROAT) 500,000 UNITS/5 ML SUSP MT SCH ×2 (18:16→21:35)
[2020-12-02] MEDS: LABETALOL HCL 5 MG/ML 4ML SYRINGE IV PRN ×2 (18:23→21:38)
[2020-12-02] MEDS: MUPIROCIN 2% OINT 15gm or 22gm EACHNOSTRI SCH (21:35)
[2020-12-02] MEDS: ACYCLOVIR 400 MG TAB PO SCH (21:36)
[2020-12-03] VITALS (18 sets, daily range): BP systolic 132–175; BP diastolic 47–96
[2020-12-03] MEDS: ACCU-CHEK COMFORT CURVE STRIP VI SCH ×5 (00:11→18:02)
[2020-12-03] MEDS: InsuLIN REG 1unit/0.01ml Soln (100units/ml) SC SCH ×5 (00:12→18:17)
[2020-12-03] MEDS: MORPHINE SULFATE INJECTION 2 MG/ML SYRG IV PRN ×3 (01:50→18:34)
[2020-12-03] MEDS ORDERED: hydrALAZINE HCL 20 MG/ML VL IV ONE (04:30)
[2020-12-03 05:16] LABS: Basophils # (auto) 0.1 10 ^3/uL (0-0.2); Basophils % (auto) 0.5 % (0.0-2.0); Eosinophils # (auto) 0.1 10 ^3/uL (0-0.8); Eosinophils % (auto) 0.5 % (0.0-7.0); Hematocrit 44.4 % (36.0-46.0); Hemoglobin 14.8 g/dL (12.2-16.2); Lymphocytes # (auto) 2.1 10 ^3/uL (0.4-5.4); Lymphocytes % (auto) 17.7 % (10.0-50.0); Mean Corpuscular Hemoglobin 29.4 pg (28.0-32.0); Mean Corpuscular Hgb Conc. 33.4 g/dL (32.0-36.0); Mean Corpuscular Volume 88.1 fL (80.0-100.0); Monocytes # (auto) 1.4 10 ^3/uL (0-1.3); Monocytes % (auto) 11.6 % (0.0-12.0); Neutrophils # (auto) 8.3 10 ^3/uL (1.6-8.6); Neutrophils % (auto) 69.7 % (37.0-80.0); Nucleated Red Blood Cells % 0.3 %; Red Blood Cells 5.03 10^6/uL (4.0-5.20); Red Cell Distribution Width 13.7 % (11.8-14.3); White Blood Cell 11.8 10^3/uL (4.4-10.8)
[2020-12-03 05:35] LABS: Calcium 8.3 mg/dL (8.5-10.1); Cholesterol 147 mg/dL (< 200)
[2020-12-03 05:38] LABS: BUN/Creatinine Ratio 14.6; HDL Cholesterol 62 mg/dL (40-59); LDL Cholesterol 70 mg/dL (< 100); Triglycerides 92 mg/dL (< 150)
[2020-12-03] MEDS: ACYCLOVIR 400 MG TAB PO SCH ×3 (06:32→22:27)
[2020-12-03] MEDS: NYSTATIN (MOUTH-THROAT) 500,000 UNITS/5 ML SUSP MT SCH ×4 (06:32→22:25)
[2020-12-03] MEDS: SODIUM CHLORIDE 0.9% 1,000 ML IV SCH ×2 (09:00→19:00)
[2020-12-03] MEDS: MUPIROCIN 2% OINT 15gm or 22gm EACHNOSTRI SCH ×2 (10:07→22:24)
[2020-12-03] MEDS: INSULIN LANTUS (GLARGINE) 1 /0.01ml (100units/ml) SC SCH (10:08)
[2020-12-03] MEDS ORDERED: REGADENOSON 0.4 MG/5 ML SYRG IV ONE (11:15)
[2020-12-03] MEDS: LABETALOL HCL 5 MG/ML 4ML SYRINGE IV PRN (14:40)
[2020-12-03] MEDS ORDERED: METOPROLOL TARTRATE 50 MG TAB PO ONE (15:00)
[2020-12-03] MEDS ORDERED: DEXTROSE (50%) 50ML SYRG IV PRN (15:00)
[2020-12-03] MEDS ORDERED: LABETALOL HCL 5 MG/ML 4ML SYRINGE IV PRN (15:00)
[2020-12-03] MEDS: METOPROLOL TARTRATE 50 MG TAB PO SCH (22:27)
[2020-12-04] MEDS: ACCU-CHEK COMFORT CURVE STRIP VI SCH ×5 (00:38→23:38)
[2020-12-04] MEDS: InsuLIN REG 1unit/0.01ml Soln (100units/ml) SC SCH ×5 (00:39→23:38)
[2020-12-04] MEDS: SODIUM CHLORIDE 0.9% 1,000 ML IV SCH (01:33)
[2020-12-04 05:00] VITALS: BP 126/58
[2020-12-04] MEDS: NYSTATIN (MOUTH-THROAT) 500,000 UNITS/5 ML SUSP MT SCH ×4 (06:03→21:47)
[2020-12-04] MEDS: ACYCLOVIR 400 MG TAB PO SCH ×3 (06:03→21:47)
[2020-12-04 06:25] LABS: Basophils # (auto) 0 10 ^3/uL (0-0.2); Basophils % (auto) 0.2 % (0.0-2.0); Eosinophils # (auto) 0.2 10 ^3/uL (0-0.8); Eosinophils % (auto) 1.5 % (0.0-7.0); Hematocrit 42.9 % (36.0-46.0); Hemoglobin 14.5 g/dL (12.2-16.2); Lymphocytes # (auto) 2.9 10 ^3/uL (0.4-5.4); Lymphocytes % (auto) 26.8 % (10.0-50.0); Mean Corpuscular Hemoglobin 29.9 pg (28.0-32.0); Mean Corpuscular Hgb Conc. 33.7 g/dL (32.0-36.0); Mean Corpuscular Volume 88.9 fL (80.0-100.0); Monocytes # (auto) 1.2 10 ^3/uL (0-1.3); Monocytes % (auto) 11.5 % (0.0-12.0); Neutrophils # (auto) 6.5 10 ^3/uL (1.6-8.6); Red Blood Cells 4.83 10^6/uL (4.0-5.20); Red Cell Distribution Width 13.7 % (11.8-14.3); White Blood Cell 10.9 10^3/uL (4.4-10.8)
[2020-12-04 06:55] LABS: Calcium 8.1 mg/dL (8.5-10.1); Potassium 3.1 mmol/L (3.5-5.1)
[2020-12-04 06:58] LABS: BUN/Creatinine Ratio 7.8
[2020-12-04 09:00] VITALS: BP 159/89
[2020-12-04] MEDS: METOPROLOL TARTRATE 50 MG TAB PO SCH ×2 (10:22→21:47)
[2020-12-04] MEDS: INSULIN LANTUS (GLARGINE) 1 /0.01ml (100units/ml) SC SCH (10:26)
[2020-12-04] MEDS: MUPIROCIN 2% OINT 15gm or 22gm EACHNOSTRI SCH ×2 (10:27→21:59)
[2020-12-04] MEDS ORDERED: POTASSIUM CHL 20 Meq TABLET PO ONE (11:30)
[2020-12-04 12:26] VITALS: BP 137/68
[2020-12-04] MEDS: MORPHINE SULFATE INJECTION 2 MG/ML SYRG IV PRN ×2 (13:57→22:31)
[2020-12-04 17:13] VITALS: BP 159/89
[2020-12-04 22:00] VITALS: BP 161/93
[2020-12-05 02:55] VITALS: BP 161/93
[2020-12-05 05:40] VITALS: BP 158/84
[2020-12-05] MEDS: ACYCLOVIR 400 MG TAB PO SCH ×2 (05:41→15:00)
[2020-12-05] MEDS: NYSTATIN (MOUTH-THROAT) 500,000 UNITS/5 ML SUSP MT SCH ×2 (05:41→11:38)
[2020-12-05] MEDS: ACCU-CHEK COMFORT CURVE STRIP VI SCH ×2 (05:42→12:00)
[2020-12-05] MEDS: InsuLIN REG 1unit/0.01ml Soln (100units/ml) SC SCH ×2 (05:42→12:13)
[2020-12-05 07:19] LABS: Potassium 3.3 mmol/L (3.5-5.1)
[2020-12-05 07:33] LABS: BUN/Creatinine Ratio 11.1; Calcium 8.6 mg/dL (8.5-10.1); Magnesium 1.8 mg/dL (1.6-2.6)
[2020-12-05] MEDS: MORPHINE SULFATE INJECTION 2 MG/ML SYRG IV PRN (08:56)
[2020-12-05] MEDS: MUPIROCIN 2% OINT 15gm or 22gm EACHNOSTRI SCH (08:57)
[2020-12-05] MEDS: METOPROLOL TARTRATE 50 MG TAB PO SCH (08:57)
[2020-12-05 09:00] VITALS: BP 166/82
[2020-12-05] MEDS: INSULIN LANTUS (GLARGINE) 1 /0.01ml (100units/ml) SC SCH (10:50)
[2020-12-05] MEDS ORDERED: POTASSIUM CHL 20 Meq TABLET PO ONE (12:45)
[2020-12-05 13:37] VITALS: BP 149/82
== END 2020-12-05 15:40 | disposition home or self-care (01) | DRG 637 ==
LOC: ER 12:44 → TELE 18:17 → ICU WEST 21:00 → TELE-EAST 12-03 20:52
PROVIDERS: ADMIT Nurse Practitioner Acute Care; ATTEND Internal Medicine
PROC: 05HC33Z Insertion of Infusion Device into Left Basilic Vein, Percutaneous Approach (ICD-10-PCS; principal; 2020-12-02)
PROC: B54NZZA Ultrasonography of Left Upper Extremity Veins, Guidance (ICD-10-PCS; 2020-12-02)
DX: E11.10 Type 2 diabetes mellitus with ketoacidosis without coma (principal); N17.0 Acute kidney failure with tubular necrosis; R65.10 Systemic inflammatory response syndrome (SIRS) of non-infectious origin without acute organ dysfunction; B37.0 Candidal stomatitis; E11.21 Type 2 diabetes mellitus with diabetic nephropathy; J44.9 Chronic obstructive pulmonary disease, unspecified; I10 Essential (primary) hypertension; E66.9 Obesity, unspecified; R00.0 Tachycardia, unspecified; Z20.822 Contact with and (suspected) exposure to COVID-19; Z91.19 Patient's noncompliance with other medical treatment and regimen; Z68.32 Body mass index [BMI] 32.0-32.9, adult; I25.10 Atherosclerotic heart disease of native coronary artery without angina pectoris
CPT/HCPCS: 36415; 36600; 71045; 78452; 80048; 80053; 80061; 81001; 82010; 82805; 82962; 83036; 83735; 83880; 83930; 84100; 84484; 85025; 85049; 87081; 87426; 93005; 93017; 93306; 94640; 96365; 96366; 96375; 96376; G0378; J1815; J2405; J3490

== ENCOUNTER 2020-12-09 11:23 | Inpatient (IN) | payer MEDICARE, MEDICAID ==
[~2020-12-09] VITALS: Ht 152.4 cm; Wt 74.3 kg
[2020-12-09] VITALS (37 sets, daily range): BP systolic 102–165; BP diastolic 43–62
[~2020-12-09 11:23] MED LIST changes: +ASPI-231 PO; -ASPI1TAB20 PO; +METO-159 PO
[2020-12-09] MEDS ORDERED: MIDAZOLAM DRIP 50 mg/50mL 50 ML IV ONE (11:29)
[2020-12-09] MEDS ORDERED: ETOMIDATE (2MG/ML) 20ML VIAL IV ONE (11:30)
[2020-12-09] MEDS: MIDAZOLAM DRIP 50 mg/50mL 50 ML IV SCH ×4 (11:30→22:48)
[2020-12-09] MEDS ORDERED: SUCCINYLCHOLINE CHLORIDE 20 MG/ML 10ML VIAL IV ONE (11:30)
[2020-12-09] MEDS ORDERED: NOREPINEPHRINE 8 MG/250ML KIT 250 ML IV SCH (11:30)
[2020-12-09] MEDS ORDERED: PROPOFOL 100 ML IV SCH (11:45)
[2020-12-09] MEDS ORDERED: INSULIN LANTUS (GLARGINE) 1 /0.01ml (100units/ml) SC ONE (12:15)
[2020-12-09] MEDS ORDERED: InsuLIN R (HUMAN) 100 UNITS in SODIUM CHL 0.9% 99 ML IV SCH (12:15)
[2020-12-09] MEDS ORDERED: DEXTROSE (50%) 50ML SYRG IV PRN (12:15)
[2020-12-09 12:21] LABS: Hematocrit 45.8 % (36.0-46.0); Hemoglobin 13.1 g/dL (12.2-16.2); Mean Corpuscular Hemoglobin 28.7 pg (28.0-32.0); Mean Corpuscular Hgb Conc. 28.6 g/dL (32.0-36.0); Mean Corpuscular Volume 100.5 fL (80.0-100.0); Red Blood Cells 4.56 10^6/uL (4.0-5.20); Red Cell Distribution Width 15.9 % (11.8-14.3); White Blood Cell 28.7 10^3/uL (4.4-10.8)
[2020-12-09 12:22] LABS: Basophils % (manual) 0 (0.0-2.0); Blast Cells 0; Eosinophils % (manual) 0 (0-7); Metamyelocytes % 0; Myelocytes % 0; Promyelocytes % 0; Reactive Lymphocytes 0
[2020-12-09] MEDS: SODIUM CHLORIDE 0.9% 1,000 ML IV SCH ×3 (12:27→18:45)
[2020-12-09 12:45] LABS: Alanine Aminotransferase 28 U/L (13-56); Albumin 3.2 g/dL (3.4-5.0); Anion Gap 35 (5-15); Blood Alcohol < 3.0 mg/dL (0-5); Blood Urea Nitrogen 42 mg/dL (7-18); Calcium 8.3 mg/dL (8.5-10.1); Chloride 86 mmol/L (98-107); Sodium 128 mmol/L (136-145)
[2020-12-09 12:48] LABS: Lactic Acid w/Reflex 5.7 mmol/L (0.4-2.0)
[2020-12-09] MEDS: fentaNYL Drip 2500mCg/250mlNS 250 ML IV SCH (12:54)
[2020-12-09 13:25] LABS: Urine Bacteria FEW /hpf (None Seen); Urine Blood Negative /uL (Negative); Urine Hyaline Cast FEW /lpf (0 - 2); Urine WBC 2 /hpf (0 - 5)
[2020-12-09 13:33] LABS: Carbon Dioxide 7 mmol/L (21-32); Glucose 897 mg/dL (74-106)
[2020-12-09 13:34] LABS: Alkaline Phosphatase 108 U/L (45-117); Aspartate Aminotransferase 17 U/L (15-37); BUN/Creatinine Ratio 15.8; Bilirubin, Total 0.6 mg/dL (0.2-1.0); GFR African American 23 mL/min; GFR Non-African American 19 mL/min; Total Protein 7.4 g/dL (6.4-8.2)
[2020-12-09] MEDS: ACCU-CHEK COMFORT CURVE STRIP VI SCH ×7 (13:41→22:37)
[2020-12-09 13:51] LABS: Band Neutrophils % (manual) 8; Lymphocytes % (manual) 15 (10.0-50.0); Monocytes % (manual) 3 (0-12)
[2020-12-09] MEDS ORDERED: MORPHINE SULF INJ 2 MG/ML SYRINGE 1ML IV PRN (14:00)
[2020-12-09] MEDS ORDERED: SODIUM BICARBONATE 8.4 % INJ 50ML VIAL IV ONE (14:00)
[2020-12-09] MEDS ORDERED: NITROGLYCERIN 0.4 MG SL TAB SL PRN (14:00)
[2020-12-09] MEDS: NOREPINEPHRINE 8 MG/250ML KIT 250 ML IV SCH (14:00)
[2020-12-09] MEDS ORDERED: SODIUM BICARBONATE 8.4% INJ 50ML SYRINGE ONE (14:41)
[2020-12-09] MEDS ORDERED: AMLO-496 PO (15:48)
[2020-12-09] MEDS ORDERED: ALBUAER3 IN (16:11)
[2020-12-09] MEDS ORDERED: ALBU0.084 NEB (16:11)
[2020-12-09] MEDS ORDERED: OXYB5TAB61 PO (16:11)
[2020-12-09] MEDS ORDERED: FERR324T25 PO (16:11)
[2020-12-09] MEDS ORDERED: INSUINJ18 SC (16:11)
[2020-12-09] MEDS ORDERED: FLUT1INH6 IN (16:11)
[2020-12-09] MEDS ORDERED: SODIUM CHLORIDE 0.9% 1,000 ML IV SCH (16:15)
[2020-12-09] MEDS ORDERED: INSU100I51 SC (16:50)
[2020-12-09] MEDS ORDERED: ASPI-498 PO (16:53)
[2020-12-09 19:21] LABS: Calcium 7.5 mg/dL (8.5-10.1); Potassium 3.7 mmol/L (3.5-5.1)
[2020-12-09 19:23] LABS: BUN/Creatinine Ratio 16.2
[2020-12-10] VITALS (103 sets, daily range): BP systolic 83–142; BP diastolic 44–78
[2020-12-10 01:24] LABS: BUN/Creatinine Ratio 18.2; Calcium 7.1 mg/dL (8.5-10.1); Potassium 3.4 mmol/L (3.5-5.1)
[2020-12-10] MEDS ORDERED: DEXTROSE (50%) 50ML SYRG IV PRN (02:15)
[2020-12-10] MEDS: InsuLIN REG 1unit/0.01ml Soln (100units/ml) SC SCH ×5 (04:00→20:16)
[2020-12-10] MEDS: ACCU-CHEK COMFORT CURVE STRIP VI SCH ×5 (04:00→20:14)
[2020-12-10 04:27] LABS: Basophils # (auto) 0.1 10 ^3/uL (0-0.2); Basophils % (auto) 0.4 % (0.0-2.0); Eosinophils # (auto) 0 10 ^3/uL (0-0.8); Eosinophils % (auto) 0.1 % (0.0-7.0); Hematocrit 35.1 % (36.0-46.0); Hemoglobin 11.7 g/dL (12.2-16.2); Lymphocytes # (auto) 2.6 10 ^3/uL (0.4-5.4); Lymphocytes % (auto) 12.7 % (10.0-50.0); Mean Corpuscular Hemoglobin 29.4 pg (28.0-32.0); Mean Corpuscular Hgb Conc. 33.3 g/dL (32.0-36.0); Mean Corpuscular Volume 88.3 fL (80.0-100.0); Monocytes # (auto) 1.6 10 ^3/uL (0-1.3); Monocytes % (auto) 7.6 % (0.0-12.0); Neutrophils # (auto) 16.4 10 ^3/uL (1.6-8.6); Neutrophils % (auto) 79.2 % (37.0-80.0); Red Blood Cells 3.97 10^6/uL (4.0-5.20); Red Cell Distribution Width 13.4 % (11.8-14.3); White Blood Cell 20.7 10^3/uL (4.4-10.8)
[2020-12-10 04:37] LABS: BUN/Creatinine Ratio 17.2; Calcium 6.8 mg/dL (8.5-10.1); Magnesium 1.8 mg/dL (1.6-2.6); Phosphorus 2.9 mg/dL (2.5-4.90); Potassium 3.5 mmol/L (3.5-5.1)
[2020-12-10] MEDS: SODIUM CHLORIDE 0.9% 1,000 ML IV SCH ×4 (05:32→20:42)
[2020-12-10] MEDS: MIDAZOLAM DRIP 50 mg/50mL 50 ML IV SCH ×4 (07:58→20:00)
[2020-12-10] MEDS ORDERED: cefTRIAXone 1GM/50ML D5W 50 ML IV SCH (09:00)
[2020-12-10] MEDS: ENOXAPARIN SOD 30 MG/0.3 ML SYRINGE SC SCH (09:26)
[2020-12-10] MEDS: PANTOPRAZOLE 40 MG/10 ML VIAL INJ IV SCH (09:26)
[2020-12-10] MEDS: INSULIN LANTUS (GLARGINE) 1 /0.01ml (100units/ml) SC SCH (09:28)
[2020-12-10] MEDS ORDERED: PIPERACILLIN-TAZOB 3.375GM 100 ML IV ONE (11:45)
[2020-12-10] MEDS: PIPERACILLIN-TAZOB 3.375GM 100 ML IV SCH ×2 (12:05→20:17)
[2020-12-10] MEDS: fentaNYL Drip 2500mCg/250mlNS 250 ML IV SCH (12:30)
[2020-12-10] MEDS: NOREPINEPHRINE 8 MG/250ML KIT 250 ML IV SCH (14:00)
[2020-12-10] MEDS: ACETAMINOPHEN 650 mg PER 20.3 mL UD GT PRN (14:48)
[2020-12-10] MEDS: Glucerna 1.2 Cal 1Liter BOTTLE GT SCH (15:00)
[2020-12-11] VITALS (100 sets, daily range): BP systolic 99–155; BP diastolic 49–83
[2020-12-11] MEDS: MIDAZOLAM DRIP 50 mg/50mL 50 ML IV SCH ×4 (00:08→18:30)
[2020-12-11] MEDS: ACCU-CHEK COMFORT CURVE STRIP VI SCH ×6 (00:09→19:56)
[2020-12-11] MEDS: InsuLIN REG 1unit/0.01ml Soln (100units/ml) SC SCH ×6 (00:11→19:58)
[2020-12-11] MEDS: PIPERACILLIN-TAZOB 3.375GM 100 ML IV SCH ×3 (04:12→19:56)
[2020-12-11 05:09] LABS: Basophils # (auto) 0.1 10 ^3/uL (0-0.2); Basophils % (auto) 0.3 % (0.0-2.0); Eosinophils # (auto) 0.3 10 ^3/uL (0-0.8); Eosinophils % (auto) 1.8 % (0.0-7.0); Hematocrit 36.9 % (36.0-46.0); Hemoglobin 12.1 g/dL (12.2-16.2); Lymphocytes # (auto) 1.9 10 ^3/uL (0.4-5.4); Lymphocytes % (auto) 10.1 % (10.0-50.0); Mean Corpuscular Hemoglobin 29.3 pg (28.0-32.0); Mean Corpuscular Hgb Conc. 32.7 g/dL (32.0-36.0); Mean Corpuscular Volume 89.6 fL (80.0-100.0); Monocytes # (auto) 1.1 10 ^3/uL (0-1.3); Monocytes % (auto) 5.7 % (0.0-12.0); Neutrophils # (auto) 15.2 10 ^3/uL (1.6-8.6); Neutrophils % (auto) 82.1 % (37.0-80.0); Red Blood Cells 4.12 10^6/uL (4.0-5.20); Red Cell Distribution Width 14.2 % (11.8-14.3); White Blood Cell 18.5 10^3/uL (4.4-10.8)
[2020-12-11 05:23] LABS: Calcium 7.7 mg/dL (8.5-10.1); Potassium 3.6 mmol/L (3.5-5.1)
[2020-12-11 05:24] LABS: Urine Bacteria FEW /hpf (None Seen); Urine Blood 1+ /uL (Negative); Urine Mucus FEW (None Seen); Urine Specific Gravity 1.014 (1.001-1.035); Urine WBC 13 /hpf (0 - 5)
[2020-12-11 05:29] LABS: BUN/Creatinine Ratio 13.8; Bilirubin, Total 0.4 mg/dL (0.2-1.0); Total Protein 5.8 g/dL (6.4-8.2)
[2020-12-11 07:13] LABS: Protein, Urine 53.2 mg/dL (0.0-11.9)
[2020-12-11] MEDS ORDERED: FUROSEMIDE 20 MG/2 ML VIAL IV ONE ×2 (08:45→20:15)
[2020-12-11] MEDS: SODIUM CHLORIDE 0.9% 1,000 ML IV SCH (09:01)
[2020-12-11] MEDS: PANTOPRAZOLE 40 MG/10 ML VIAL INJ IV SCH (10:49)
[2020-12-11] MEDS: ENOXAPARIN SOD 30 MG/0.3 ML SYRINGE SC SCH (10:49)
[2020-12-11] MEDS: INSULIN LANTUS (GLARGINE) 1 /0.01ml (100units/ml) SC SCH (11:08)
[2020-12-11] MEDS: fentaNYL Drip 2500mCg/250mlNS 250 ML IV SCH (13:39)
[2020-12-11] MEDS: NOREPINEPHRINE 8 MG/250ML KIT 250 ML IV SCH (14:57)
[2020-12-11] MEDS: LINEZOLID 600MG/300ML 300 ML IV SCH (16:29)
[2020-12-11] MEDS: Glucerna 1.2 Cal 1Liter BOTTLE GT SCH (17:15)
[2020-12-12] VITALS (98 sets, daily range): BP systolic 92–139; BP diastolic 44–82
[2020-12-12] MEDS: ACCU-CHEK COMFORT CURVE STRIP VI SCH ×7 (00:15→23:24)
[2020-12-12] MEDS: InsuLIN REG 1unit/0.01ml Soln (100units/ml) SC SCH ×7 (00:19→23:24)
[2020-12-12] MEDS: MIDAZOLAM DRIP 50 mg/50mL 50 ML IV SCH ×2 (01:47→05:17)
[2020-12-12] MEDS: PIPERACILLIN-TAZOB 3.375GM 100 ML IV SCH ×3 (04:07→19:46)
[2020-12-12] MEDS: LINEZOLID 600MG/300ML 300 ML IV SCH ×2 (04:07→18:17)
[2020-12-12 04:52] LABS: Basophils # (auto) 0.1 10 ^3/uL (0-0.2); Basophils % (auto) 0.5 % (0.0-2.0); Eosinophils # (auto) 0.3 10 ^3/uL (0-0.8); Eosinophils % (auto) 2.1 % (0.0-7.0); Hematocrit 34.5 % (36.0-46.0); Hemoglobin 11.2 g/dL (12.2-16.2); Lymphocytes # (auto) 2.5 10 ^3/uL (0.4-5.4); Lymphocytes % (auto) 17.3 % (10.0-50.0); Mean Corpuscular Hgb Conc. 32.5 g/dL (32.0-36.0); Mean Corpuscular Volume 89.1 fL (80.0-100.0); Monocytes # (auto) 0.7 10 ^3/uL (0-1.3); Monocytes % (auto) 4.7 % (0.0-12.0); Neutrophils # (auto) 10.8 10 ^3/uL (1.6-8.6); Neutrophils % (auto) 75.4 % (37.0-80.0); Red Blood Cells 3.87 10^6/uL (4.0-5.20); White Blood Cell 14.3 10^3/uL (4.4-10.8)
[2020-12-12 05:11] LABS: Potassium 3.3 mmol/L (3.5-5.1)
[2020-12-12 05:16] LABS: BUN/Creatinine Ratio 12.9; Calcium 7.9 mg/dL (8.5-10.1)
[2020-12-12] MEDS ORDERED: FUROSEMIDE 20 MG/2 ML VIAL IV SCH (06:00)
[2020-12-12] MEDS ORDERED: FUROSEMIDE 20 MG/2 ML VIAL IV ONE ×2 (09:00→14:45)
[2020-12-12] MEDS: PANTOPRAZOLE 40 MG/10 ML VIAL INJ IV SCH (10:13)
[2020-12-12] MEDS: INSULIN LANTUS (GLARGINE) 1 /0.01ml (100units/ml) SC SCH (10:14)
[2020-12-12] MEDS: ENOXAPARIN SOD 30 MG/0.3 ML SYRINGE SC SCH (10:16)
[2020-12-12] MEDS: POTASSIUM CHL 20MEQ/100ML 100 ML IV SCH ×2 (10:27→12:55)
[2020-12-12] MEDS: fentaNYL Drip 2500mCg/250mlNS 250 ML IV SCH (12:30)
[2020-12-12] MEDS: NOREPINEPHRINE 8 MG/250ML KIT 250 ML IV SCH (14:00)
[2020-12-12] MEDS ORDERED: METOCLOPRAMIDE HCL 5MG/ml INJ 2ml VIAL IV ONE (14:45)
[2020-12-12] MEDS: FREE WATER GT SCH ×2 (18:17→23:24)
[2020-12-12] MEDS: METOCLOPRAMIDE HCL 5MG/ml INJ 2ml VIAL IV SCH (21:32)
[2020-12-13] VITALS (102 sets, daily range): BP systolic 92–152; BP diastolic 49–78
[2020-12-13] MEDS: MIDAZOLAM DRIP 50 mg/50mL 50 ML IV SCH ×5 (00:46→16:30)
[2020-12-13] MEDS: PIPERACILLIN-TAZOB 3.375GM 100 ML IV SCH ×3 (03:45→19:46)
[2020-12-13] MEDS: InsuLIN REG 1unit/0.01ml Soln (100units/ml) SC SCH ×5 (03:46→19:48)
[2020-12-13] MEDS: LINEZOLID 600MG/300ML 300 ML IV SCH ×2 (03:46→16:21)
[2020-12-13] MEDS: ACCU-CHEK COMFORT CURVE STRIP VI SCH ×5 (03:46→19:47)
[2020-12-13 04:38] LABS: Basophils # (auto) 0.1 10 ^3/uL (0-0.2); Basophils % (auto) 0.7 % (0.0-2.0); Eosinophils # (auto) 0.3 10 ^3/uL (0-0.8); Eosinophils % (auto) 2.6 % (0.0-7.0); Hemoglobin 11.9 g/dL (12.2-16.2); Lymphocytes % (auto) 22.9 % (10.0-50.0); Mean Corpuscular Hemoglobin 29.3 pg (28.0-32.0); Mean Corpuscular Volume 88.6 fL (80.0-100.0); Monocytes # (auto) 0.7 10 ^3/uL (0-1.3); Monocytes % (auto) 5.2 % (0.0-12.0); Neutrophils % (auto) 68.6 % (37.0-80.0); Nucleated Red Blood Cells % 0.1 %; Red Blood Cells 4.07 10^6/uL (4.0-5.20); White Blood Cell 13.1 10^3/uL (4.4-10.8)
[2020-12-13 04:57] LABS: BUN/Creatinine Ratio 8.4; Calcium 8.3 mg/dL (8.5-10.1); Potassium 3.5 mmol/L (3.5-5.1)
[2020-12-13] MEDS: FREE WATER GT SCH ×3 (05:49→18:36)
[2020-12-13] MEDS: METOCLOPRAMIDE HCL 5MG/ml INJ 2ml VIAL IV SCH ×3 (05:49→21:33)
[2020-12-13] MEDS ORDERED: LEVALBUTEROL HCL 1.25 MG/3 ML NEB ONE (05:54)
[2020-12-13] MEDS: LEVALBUTEROL HCL 1.25 MG/3 ML NEB NEB SCH ×4 (06:13→23:38)
[2020-12-13] MEDS: INSULIN LANTUS (GLARGINE) 1 /0.01ml (100units/ml) SC SCH (09:09)
[2020-12-13] MEDS: fentaNYL Drip 2500mCg/250mlNS 250 ML IV SCH (09:09)
[2020-12-13] MEDS: PANTOPRAZOLE 40 MG/10 ML VIAL INJ IV SCH (10:15)
[2020-12-13] MEDS: ENOXAPARIN SOD 30 MG/0.3 ML SYRINGE SC SCH (10:15)
[2020-12-13] MEDS: NOREPINEPHRINE 8 MG/250ML KIT 250 ML IV SCH (14:00)
[2020-12-14] VITALS (102 sets, daily range): BP systolic 90–138; BP diastolic 50–71
[2020-12-14] MEDS: ACCU-CHEK COMFORT CURVE STRIP VI SCH ×6 (00:02→20:01)
[2020-12-14] MEDS: FREE WATER GT SCH ×4 (00:02→18:06)
[2020-12-14] MEDS: InsuLIN REG 1unit/0.01ml Soln (100units/ml) SC SCH ×6 (00:04→20:02)
[2020-12-14] MEDS: PIPERACILLIN-TAZOB 3.375GM 100 ML IV SCH ×3 (03:41→20:01)
[2020-12-14] MEDS: LINEZOLID 600MG/300ML 300 ML IV SCH ×2 (03:41→15:58)
[2020-12-14 04:50] LABS: Basophils # (auto) 0.1 10 ^3/uL (0-0.2); Basophils % (auto) 0.7 % (0.0-2.0); Eosinophils # (auto) 0.4 10 ^3/uL (0-0.8); Eosinophils % (auto) 3.4 % (0.0-7.0); Hematocrit 34.1 % (36.0-46.0); Hemoglobin 11.3 g/dL (12.2-16.2); Lymphocytes # (auto) 2.7 10 ^3/uL (0.4-5.4); Lymphocytes % (auto) 24.9 % (10.0-50.0); Mean Corpuscular Hemoglobin 29.2 pg (28.0-32.0); Mean Corpuscular Hgb Conc. 33.2 g/dL (32.0-36.0); Monocytes # (auto) 0.7 10 ^3/uL (0-1.3); Monocytes % (auto) 6.5 % (0.0-12.0); Neutrophils % (auto) 64.5 % (37.0-80.0); Nucleated Red Blood Cells % 0.1 %; Red Blood Cells 3.87 10^6/uL (4.0-5.20); White Blood Cell 10.8 10^3/uL (4.4-10.8)
[2020-12-14 05:28] LABS: BUN/Creatinine Ratio 7.5; Calcium 7.8 mg/dL (8.5-10.1); Potassium 3.1 mmol/L (3.5-5.1)
[2020-12-14] MEDS: METOCLOPRAMIDE HCL 5MG/ml INJ 2ml VIAL IV SCH ×3 (06:24→21:53)
[2020-12-14] MEDS: LEVALBUTEROL HCL 1.25 MG/3 ML NEB NEB SCH ×3 (06:38→18:08)
[2020-12-14] MEDS: fentaNYL Drip 2500mCg/250mlNS 250 ML IV SCH (07:11)
[2020-12-14] MEDS: MIDAZOLAM DRIP 50 mg/50mL 50 ML IV SCH ×3 (07:12→18:40)
[2020-12-14] MEDS: ENOXAPARIN SOD 30 MG/0.3 ML SYRINGE SC SCH (10:23)
[2020-12-14] MEDS: PANTOPRAZOLE 40 MG/10 ML VIAL INJ IV SCH (10:23)
[2020-12-14] MEDS: INSULIN LANTUS (GLARGINE) 1 /0.01ml (100units/ml) SC SCH (10:48)
[2020-12-14] MEDS: POTASSIUM CHL 20MEQ/100ML 100 ML IV SCH ×3 (10:54→15:14)
[2020-12-14] MEDS: NOREPINEPHRINE 8 MG/250ML KIT 250 ML IV SCH (13:48)
[2020-12-15] VITALS (100 sets, daily range): BP systolic 73–156; BP diastolic 40–70
[2020-12-15] MEDS: FREE WATER GT SCH ×4 (00:02→18:10)
[2020-12-15] MEDS: ACCU-CHEK COMFORT CURVE STRIP VI SCH ×6 (00:02→20:00)
[2020-12-15] MEDS: InsuLIN REG 1unit/0.01ml Soln (100units/ml) SC SCH ×6 (00:04→20:00)
[2020-12-15] MEDS: MIDAZOLAM DRIP 50 mg/50mL 50 ML IV SCH ×6 (00:10→20:47)
[2020-12-15] MEDS: LEVALBUTEROL HCL 1.25 MG/3 ML NEB NEB SCH ×4 (00:28→18:48)
[2020-12-15] MEDS: Glucerna 1.2 Cal 1Liter BOTTLE GT SCH (02:49)
[2020-12-15] MEDS: fentaNYL Drip 2500mCg/250mlNS 250 ML IV SCH ×2 (02:50→16:55)
[2020-12-15] MEDS: PIPERACILLIN-TAZOB 3.375GM 100 ML IV SCH ×3 (04:11→20:00)
[2020-12-15] MEDS: LINEZOLID 600MG/300ML 300 ML IV SCH ×2 (04:11→15:54)
[2020-12-15] MEDS ORDERED: PROPOFOL 100 ML IV ONE (05:04)
[2020-12-15] MEDS: PROPOFOL 100 ML IV SCH (05:37)
[2020-12-15] MEDS: NOREPINEPHRINE 8 MG/250ML KIT 250 ML IV SCH (05:39)
[2020-12-15] MEDS: METOCLOPRAMIDE HCL 5MG/ml INJ 2ml VIAL IV SCH ×3 (06:27→21:10)
[2020-12-15 08:36] LABS: Basophils # (auto) 0.1 10 ^3/uL (0-0.2); Basophils % (auto) 0.8 % (0.0-2.0); Eosinophils # (auto) 0.4 10 ^3/uL (0-0.8); Eosinophils % (auto) 3.8 % (0.0-7.0); Hematocrit 32.2 % (36.0-46.0); Hemoglobin 10.8 g/dL (12.2-16.2); Lymphocytes # (auto) 2.5 10 ^3/uL (0.4-5.4); Mean Corpuscular Hgb Conc. 33.5 g/dL (32.0-36.0); Mean Corpuscular Volume 89.6 fL (80.0-100.0); Monocytes # (auto) 0.9 10 ^3/uL (0-1.3); Monocytes % (auto) 8.2 % (0.0-12.0); Neutrophils # (auto) 7.3 10 ^3/uL (1.6-8.6); Neutrophils % (auto) 65.2 % (37.0-80.0); Nucleated Red Blood Cells % 0.1 %; Red Blood Cells 3.59 10^6/uL (4.0-5.20); Red Cell Distribution Width 13.9 % (11.8-14.3); White Blood Cell 11.2 10^3/uL (4.4-10.8)
[2020-12-15 09:03] LABS: Albumin 1.4 g/dL (3.4-5.0); Calcium 7.5 mg/dL (8.5-10.1); Potassium 3.9 mmol/L (3.5-5.1)
[2020-12-15 09:06] LABS: BUN/Creatinine Ratio 6.6; Bilirubin, Total 0.3 mg/dL (0.2-1.0); Total Protein 5.5 g/dL (6.4-8.2)
[2020-12-15] MEDS: ENOXAPARIN SOD 30 MG/0.3 ML SYRINGE SC SCH (10:26)
[2020-12-15] MEDS: PANTOPRAZOLE 40 MG/10 ML VIAL INJ IV SCH (10:26)
[2020-12-15] MEDS: INSULIN LANTUS (GLARGINE) 1 /0.01ml (100units/ml) SC SCH (10:29)
[2020-12-15] MEDS ORDERED: FUROSEMIDE 20 MG/2 ML VIAL IV ONE (15:45)
[2020-12-16] VITALS (90 sets, daily range): BP systolic 99–165; BP diastolic 47–82
[2020-12-16] MEDS: MIDAZOLAM DRIP 50 mg/50mL 50 ML IV SCH ×4 (00:20→20:59)
[2020-12-16] MEDS: FREE WATER GT SCH ×4 (00:22→18:53)
[2020-12-16] MEDS: ACCU-CHEK COMFORT CURVE STRIP VI SCH ×6 (00:23→20:00)
[2020-12-16] MEDS: LEVALBUTEROL HCL 1.25 MG/3 ML NEB NEB SCH ×4 (00:29→18:22)
[2020-12-16] MEDS: PIPERACILLIN-TAZOB 3.375GM 100 ML IV SCH ×3 (03:46→20:00)
[2020-12-16] MEDS: LINEZOLID 600MG/300ML 300 ML IV SCH ×2 (03:47→16:15)
[2020-12-16] MEDS: InsuLIN REG 1unit/0.01ml Soln (100units/ml) SC SCH ×6 (04:00→20:00)
[2020-12-16] MEDS: METOCLOPRAMIDE HCL 5MG/ml INJ 2ml VIAL IV SCH ×3 (05:00→20:59)
[2020-12-16 07:07] LABS: Albumin 1.4 g/dL (3.4-5.0); BUN/Creatinine Ratio 6.9; Magnesium 1.5 mg/dL (1.6-2.6); Potassium 4.2 mmol/L (3.5-5.1)
[2020-12-16 07:08] LABS: Basophils # (auto) 0.1 10 ^3/uL (0-0.2); Basophils % (auto) 0.6 % (0.0-2.0); Eosinophils # (auto) 0.7 10 ^3/uL (0-0.8); Eosinophils % (auto) 5.5 % (0.0-7.0); Hemoglobin 11.4 g/dL (12.2-16.2); Lymphocytes # (auto) 2.8 10 ^3/uL (0.4-5.4); Lymphocytes % (auto) 22.6 % (10.0-50.0); Mean Corpuscular Hemoglobin 29.9 pg (28.0-32.0); Mean Corpuscular Hgb Conc. 33.5 g/dL (32.0-36.0); Mean Corpuscular Volume 89.4 fL (80.0-100.0); Monocytes # (auto) 1.1 10 ^3/uL (0-1.3); Monocytes % (auto) 8.4 % (0.0-12.0); Neutrophils # (auto) 7.8 10 ^3/uL (1.6-8.6); Neutrophils % (auto) 62.9 % (37.0-80.0); Nucleated Red Blood Cells % 0.1 %; Red Cell Distribution Width 13.9 % (11.8-14.3); White Blood Cell 12.5 10^3/uL (4.4-10.8)
[2020-12-16 07:10] LABS: Bilirubin, Total 0.2 mg/dL (0.2-1.0); Phosphorus 3.7 mg/dL (2.5-4.90); Total Protein 5.5 g/dL (6.4-8.2)
[2020-12-16] MEDS: fentaNYL Drip 2500mCg/250mlNS 250 ML IV SCH ×2 (08:26→21:01)
[2020-12-16] MEDS: INSULIN LANTUS (GLARGINE) 1 /0.01ml (100units/ml) SC SCH (10:00)
[2020-12-16] MEDS: PROPOFOL 100 ML IV SCH (10:20)
[2020-12-16] MEDS: ENOXAPARIN SOD 30 MG/0.3 ML SYRINGE SC SCH (10:27)
[2020-12-16] MEDS: PANTOPRAZOLE 40 MG/10 ML VIAL INJ IV SCH (10:27)
[2020-12-16] MEDS: NOREPINEPHRINE 8 MG/250ML KIT 250 ML IV SCH (13:58)
[2020-12-16] MEDS ORDERED: FUROSEMIDE 40 MG/4 ML VIAL IV ONE (15:00)
[2020-12-16] MEDS ORDERED: POTASSIUM EFFERVESENT TAB 25 MEQ GT ONE (15:00)
[2020-12-17] VITALS (92 sets, daily range): BP systolic 100–172; BP diastolic 44–85
[2020-12-17] MEDS: LEVALBUTEROL HCL 1.25 MG/3 ML NEB NEB SCH ×4 (00:13→18:00)
[2020-12-17] MEDS: LINEZOLID 600MG/300ML 300 ML IV SCH ×2 (03:58→17:00)
[2020-12-17] MEDS: PIPERACILLIN-TAZOB 3.375GM 100 ML IV SCH ×3 (03:58→20:19)
[2020-12-17] MEDS: MIDAZOLAM DRIP 50 mg/50mL 50 ML IV SCH (03:59)
[2020-12-17] MEDS: ACCU-CHEK COMFORT CURVE STRIP VI SCH ×7 (04:00→23:27)
[2020-12-17] MEDS: InsuLIN REG 1unit/0.01ml Soln (100units/ml) SC SCH ×7 (04:00→23:37)
[2020-12-17 04:29] LABS: Basophils # (auto) 0 10 ^3/uL (0-0.2); Basophils % (auto) 0.5 % (0.0-2.0); Eosinophils # (auto) 0.5 10 ^3/uL (0-0.8); Hematocrit 31.5 % (36.0-46.0); Hemoglobin 10.6 g/dL (12.2-16.2); Lymphocytes # (auto) 2.5 10 ^3/uL (0.4-5.4); Lymphocytes % (auto) 26.8 % (10.0-50.0); Mean Corpuscular Hemoglobin 29.7 pg (28.0-32.0); Mean Corpuscular Hgb Conc. 33.6 g/dL (32.0-36.0); Mean Corpuscular Volume 88.3 fL (80.0-100.0); Monocytes # (auto) 0.8 10 ^3/uL (0-1.3); Monocytes % (auto) 8.8 % (0.0-12.0); Neutrophils # (auto) 5.5 10 ^3/uL (1.6-8.6); Neutrophils % (auto) 58.9 % (37.0-80.0); Nucleated Red Blood Cells % 0.1 %; Red Blood Cells 3.57 10^6/uL (4.0-5.20); Red Cell Distribution Width 14.1 % (11.8-14.3); White Blood Cell 9.4 10^3/uL (4.4-10.8)
[2020-12-17 04:49] LABS: BUN/Creatinine Ratio 7.7; Calcium 8.5 mg/dL (8.5-10.1); Potassium 3.7 mmol/L (3.5-5.1)
[2020-12-17] MEDS: PROPOFOL 100 ML IV SCH (05:15)
[2020-12-17] MEDS: FREE WATER GT SCH ×5 (05:41→23:27)
[2020-12-17] MEDS: METOCLOPRAMIDE HCL 5MG/ml INJ 2ml VIAL IV SCH ×3 (06:00→23:26)
[2020-12-17] MEDS: INSULIN LANTUS (GLARGINE) 1 /0.01ml (100units/ml) SC SCH (10:00)
[2020-12-17] MEDS: PANTOPRAZOLE 40 MG/10 ML VIAL INJ IV SCH (10:05)
[2020-12-17] MEDS: FUROSEMIDE 20 MG/2 ML VIAL IV SCH (10:05)
[2020-12-17] MEDS: POTASSIUM EFFERVESENT TAB 25 MEQ GT SCH (10:05)
[2020-12-17] MEDS: ENOXAPARIN SOD 30 MG/0.3 ML SYRINGE SC SCH (10:05)
[2020-12-17] MEDS ORDERED: FUROSEMIDE 20 MG/2 ML VIAL IV ONE (14:30)
[2020-12-17] MEDS ORDERED: POTASSIUM EFFERVESENT TAB 25 MEQ GT ONE (14:30)
[2020-12-17 22:16] LABS: INR 1.03 (0.9-1.15); Partial Thromboplastin Time 34.7 sec (23.0-31.2)
[2020-12-18] VITALS (75 sets, daily range): BP systolic 95–176; BP diastolic 47–84
[2020-12-18] MEDS: ACCU-CHEK COMFORT CURVE STRIP VI SCH ×6 (04:00→23:24)
[2020-12-18] MEDS: InsuLIN REG 1unit/0.01ml Soln (100units/ml) SC SCH ×6 (04:00→23:26)
[2020-12-18 04:06] LABS: Basophils # (auto) 0.1 10 ^3/uL (0-0.2); Basophils % (auto) 0.7 % (0.0-2.0); Eosinophils # (auto) 0.3 10 ^3/uL (0-0.8); Nucleated Red Blood Cells % 0.1 %
[2020-12-18 04:09] LABS: Hemoglobin 11.2 g/dL (12.2-16.2); Lymphocytes # (auto) 2.5 10 ^3/uL (0.4-5.4); Lymphocytes % (auto) 27.9 % (10.0-50.0); Mean Corpuscular Hemoglobin 29.8 pg (28.0-32.0); Mean Corpuscular Hgb Conc. 33.9 g/dL (32.0-36.0); Mean Corpuscular Volume 88.1 fL (80.0-100.0); Monocytes # (auto) 1.1 10 ^3/uL (0-1.3); Monocytes % (auto) 12.2 % (0.0-12.0); Neutrophils % (auto) 56.2 % (37.0-80.0); Red Blood Cells 3.75 10^6/uL (4.0-5.20); Red Cell Distribution Width 13.8 % (11.8-14.3); White Blood Cell 8.9 10^3/uL (4.4-10.8)
[2020-12-18 04:28] LABS: Potassium 3.5 mmol/L (3.5-5.1)
[2020-12-18 04:30] LABS: BUN/Creatinine Ratio 6.5
[2020-12-18] MEDS: LINEZOLID 600MG/300ML 300 ML IV SCH ×2 (04:32→16:18)
[2020-12-18] MEDS: PIPERACILLIN-TAZOB 3.375GM 100 ML IV SCH ×3 (05:02→20:09)
[2020-12-18] MEDS: PROPOFOL 100 ML IV SCH (05:15)
[2020-12-18] MEDS: LEVALBUTEROL HCL 1.25 MG/3 ML NEB NEB SCH ×4 (06:05→18:29)
[2020-12-18] MEDS: FREE WATER GT SCH ×4 (06:20→23:24)
[2020-12-18] MEDS: METOCLOPRAMIDE HCL 5MG/ml INJ 2ml VIAL IV SCH ×3 (06:20→21:30)
[2020-12-18] MEDS: ACETAMINOPHEN 650 mg PER 20.3 mL UD GT PRN ×2 (08:32→21:28)
[2020-12-18] MEDS: PANTOPRAZOLE 40 MG/10 ML VIAL INJ IV SCH (10:21)
[2020-12-18] MEDS: ENOXAPARIN SOD 30 MG/0.3 ML SYRINGE SC SCH (10:21)
[2020-12-18] MEDS: POTASSIUM EFFERVESENT TAB 25 MEQ GT SCH (10:21)
[2020-12-18] MEDS: FUROSEMIDE 20 MG/2 ML VIAL IV SCH (10:21)
[2020-12-18] MEDS: INSULIN LANTUS (GLARGINE) 1 /0.01ml (100units/ml) SC SCH (10:22)
[2020-12-18] MEDS: MIDAZOLAM DRIP 50 mg/50mL 50 ML IV SCH (11:30)
[2020-12-18] MEDS: fentaNYL Drip 2500mCg/250mlNS 250 ML IV SCH (13:03)
[2020-12-18] MEDS ORDERED: LIDOCAINE 1% (LOCAL ANESTH.) PF 5ml SDV ID ONE (14:15)
[2020-12-18] MEDS: SODIUM CHLOR 0.9% PF (SALINE LOCK) 10ML VIAL/SYR IV SCH (21:31)
[2020-12-19] VITALS (43 sets, daily range): BP systolic 112–181; BP diastolic 58–90
[2020-12-19] MEDS: LEVALBUTEROL HCL 1.25 MG/3 ML NEB NEB SCH ×5 (00:09→23:56)
[2020-12-19] MEDS: ACCU-CHEK COMFORT CURVE STRIP VI SCH ×5 (03:39→20:04)
[2020-12-19] MEDS: InsuLIN REG 1unit/0.01ml Soln (100units/ml) SC SCH ×5 (03:39→20:00)
[2020-12-19] MEDS: LINEZOLID 600MG/300ML 300 ML IV SCH ×2 (03:39→16:03)
[2020-12-19 04:48] LABS: BUN/Creatinine Ratio 6.8; Calcium 9.3 mg/dL (8.5-10.1); Potassium 3.1 mmol/L (3.5-5.1)
[2020-12-19] MEDS: PROPOFOL 100 ML IV SCH (05:15)
[2020-12-19] MEDS: PIPERACILLIN-TAZOB 3.375GM 100 ML IV SCH ×3 (06:06→20:04)
[2020-12-19] MEDS: FREE WATER GT SCH ×3 (06:06→18:00)
[2020-12-19] MEDS: METOCLOPRAMIDE HCL 5MG/ml INJ 2ml VIAL IV SCH ×3 (06:06→21:53)
[2020-12-19] MEDS ORDERED: POTASSIUM CHL 20MEQ/100ML 100 ML IV ONE (06:30)
[2020-12-19] MEDS: PANTOPRAZOLE 40 MG/10 ML VIAL INJ IV SCH (10:38)
[2020-12-19] MEDS: POTASSIUM EFFERVESENT TAB 25 MEQ GT SCH (10:38)
[2020-12-19] MEDS: FUROSEMIDE 20 MG/2 ML VIAL IV SCH (10:39)
[2020-12-19] MEDS: ENOXAPARIN SOD 30 MG/0.3 ML SYRINGE SC SCH (10:40)
[2020-12-19] MEDS: SODIUM CHLOR 0.9% PF (SALINE LOCK) 10ML VIAL/SYR IV SCH ×2 (10:41→21:53)
[2020-12-19] MEDS: INSULIN LANTUS (GLARGINE) 1 /0.01ml (100units/ml) SC SCH (11:20)
[2020-12-19] MEDS: MIDAZOLAM DRIP 50 mg/50mL 50 ML IV SCH (11:30)
[2020-12-19] MEDS: fentaNYL Drip 2500mCg/250mlNS 250 ML IV SCH (12:30)
[2020-12-19] MEDS ORDERED: FUROSEMIDE 20 MG/2 ML VIAL IV ONE (12:30)
[2020-12-19] MEDS: POTASSIUM CHL 20MEQ/100ML 100 ML IV SCH ×2 (13:30→15:30)
[2020-12-20] VITALS (22 sets, daily range): BP systolic 109–173; BP diastolic 46–88
[2020-12-20] MEDS: ACCU-CHEK COMFORT CURVE STRIP VI SCH ×6 (00:06→21:01)
[2020-12-20] MEDS: LINEZOLID 600MG/300ML 300 ML IV SCH ×2 (03:30→17:53)
[2020-12-20] MEDS: InsuLIN REG 1unit/0.01ml Soln (100units/ml) SC SCH ×6 (04:00→21:03)
[2020-12-20 04:30] LABS: Basophils # (auto) 0 10 ^3/uL (0-0.2); Basophils % (auto) 0.3 % (0.0-2.0); Eosinophils # (auto) 0.1 10 ^3/uL (0-0.8); Eosinophils % (auto) 1.6 % (0.0-7.0); Hematocrit 31.7 % (36.0-46.0); Hemoglobin 10.9 g/dL (12.2-16.2); Lymphocytes % (auto) 23.1 % (10.0-50.0); Mean Corpuscular Hemoglobin 30.4 pg (28.0-32.0); Mean Corpuscular Hgb Conc. 34.5 g/dL (32.0-36.0); Mean Corpuscular Volume 88.1 fL (80.0-100.0); Monocytes # (auto) 0.8 10 ^3/uL (0-1.3); Neutrophils # (auto) 5.7 10 ^3/uL (1.6-8.6); Nucleated Red Blood Cells % 0.2 %; Red Cell Distribution Width 13.2 % (11.8-14.3); White Blood Cell 8.6 10^3/uL (4.4-10.8)
[2020-12-20] MEDS: PIPERACILLIN-TAZOB 3.375GM 100 ML IV SCH ×3 (04:46→21:01)
[2020-12-20 04:48] LABS: BUN/Creatinine Ratio 4.1; Calcium 8.7 mg/dL (8.5-10.1); Potassium 3.1 mmol/L (3.5-5.1)
[2020-12-20] MEDS: PROPOFOL 100 ML IV SCH (04:48)
[2020-12-20] MEDS: FREE WATER GT SCH ×2 (05:31)
[2020-12-20] MEDS: METOCLOPRAMIDE HCL 5MG/ml INJ 2ml VIAL IV SCH (05:32)
[2020-12-20] MEDS: LEVALBUTEROL HCL 1.25 MG/3 ML NEB NEB SCH ×3 (06:06→18:20)
[2020-12-20] MEDS: POTASSIUM CHL 20MEQ/100ML 100 ML IV SCH ×2 (08:22→10:23)
[2020-12-20] MEDS: POTASSIUM EFFERVESENT TAB 25 MEQ GT SCH (09:57)
[2020-12-20] MEDS: INSULIN LANTUS (GLARGINE) 1 /0.01ml (100units/ml) SC SCH (10:00)
[2020-12-20] MEDS: SODIUM CHLOR 0.9% PF (SALINE LOCK) 10ML VIAL/SYR IV SCH ×2 (10:19→22:00)
[2020-12-20] MEDS: PANTOPRAZOLE 40 MG/10 ML VIAL INJ IV SCH (10:23)
[2020-12-20] MEDS: FUROSEMIDE 20 MG/2 ML VIAL IV SCH (10:23)
[2020-12-20] MEDS: ENOXAPARIN SOD 40 MG/0.4 ML SYRINGE SC SCH (10:23)
[2020-12-21] MEDS: ACCU-CHEK COMFORT CURVE STRIP VI SCH ×6 (00:32→22:59)
[2020-12-21] MEDS: LINEZOLID 600MG/300ML 300 ML IV SCH ×2 (04:00→16:00)
[2020-12-21] MEDS: InsuLIN REG 1unit/0.01ml Soln (100units/ml) SC SCH ×6 (04:00→23:02)
[2020-12-21] MEDS: PIPERACILLIN-TAZOB 3.375GM 100 ML IV SCH ×3 (04:00→20:49)
[2020-12-21 05:34] VITALS: BP 152/72
[2020-12-21] MEDS: LEVALBUTEROL HCL 1.25 MG/3 ML NEB NEB SCH ×5 (06:00→23:43)
[2020-12-21 06:29] LABS: Basophils # (auto) 0 10 ^3/uL (0-0.2); Basophils % (auto) 0.5 % (0.0-2.0); Eosinophils # (auto) 0.4 10 ^3/uL (0-0.8); Eosinophils % (auto) 4.2 % (0.0-7.0); Hematocrit 32.6 % (36.0-46.0); Hemoglobin 10.7 g/dL (12.2-16.2); Lymphocytes # (auto) 1.9 10 ^3/uL (0.4-5.4); Lymphocytes % (auto) 21.8 % (10.0-50.0); Mean Corpuscular Hemoglobin 29.2 pg (28.0-32.0); Mean Corpuscular Hgb Conc. 32.8 g/dL (32.0-36.0); Mean Corpuscular Volume 89.1 fL (80.0-100.0); Monocytes # (auto) 0.7 10 ^3/uL (0-1.3); Monocytes % (auto) 8.3 % (0.0-12.0); Neutrophils # (auto) 5.7 10 ^3/uL (1.6-8.6); Neutrophils % (auto) 65.2 % (37.0-80.0); Nucleated Red Blood Cells % 0.6 %; Red Blood Cells 3.66 10^6/uL (4.0-5.20); Red Cell Distribution Width 13.2 % (11.8-14.3); White Blood Cell 8.8 10^3/uL (4.4-10.8)
[2020-12-21 06:45] LABS: Calcium 8.7 mg/dL (8.5-10.1); Potassium 3.1 mmol/L (3.5-5.1)
[2020-12-21 09:00] VITALS: BP 156/79
[2020-12-21] MEDS: ENOXAPARIN SOD 40 MG/0.4 ML SYRINGE SC SCH (10:00)
[2020-12-21] MEDS: POTASSIUM EFFERVESENT TAB 25 MEQ GT SCH (10:05)
[2020-12-21] MEDS: PANTOPRAZOLE 40 MG/10 ML VIAL INJ IV SCH (10:06)
[2020-12-21] MEDS: FUROSEMIDE 20 MG/2 ML VIAL IV SCH (10:06)
[2020-12-21] MEDS: INSULIN LANTUS (GLARGINE) 1 /0.01ml (100units/ml) SC SCH (10:07)
[2020-12-21] MEDS: SODIUM CHLOR 0.9% PF (SALINE LOCK) 10ML VIAL/SYR IV SCH ×2 (10:08→22:59)
[2020-12-21 13:10] VITALS: BP 135/70
[2020-12-21] MEDS ORDERED: LORazepam 2MG/ML-1ML VIAL IV PRN (14:00)
[2020-12-21] MEDS ORDERED: DEXTROSE (50%) 50ML SYRG IV PRN (15:15)
[2020-12-21 16:53] VITALS: BP 160/93
[2020-12-21 21:32] VITALS: BP 160/73
[2020-12-22] MEDS: LINEZOLID 600MG/300ML 300 ML IV SCH ×2 (03:01→16:01)
[2020-12-22] MEDS: PIPERACILLIN-TAZOB 3.375GM 100 ML IV SCH ×2 (04:59→12:37)
[2020-12-22 05:01] VITALS: BP 142/79
[2020-12-22] MEDS: LEVALBUTEROL HCL 1.25 MG/3 ML NEB NEB SCH ×2 (06:38→12:13)
[2020-12-22] MEDS: ACCU-CHEK COMFORT CURVE STRIP VI SCH ×3 (06:46→17:12)
[2020-12-22] MEDS: InsuLIN REG 1unit/0.01ml Soln (100units/ml) SC SCH ×3 (06:47→17:00)
[2020-12-22 08:00] VITALS: BP 130/67
[2020-12-22] MEDS: PANTOPRAZOLE 40 MG/10 ML VIAL INJ IV SCH (09:59)
[2020-12-22] MEDS: ENOXAPARIN SOD 40 MG/0.4 ML SYRINGE SC SCH (09:59)
[2020-12-22] MEDS: FUROSEMIDE 20 MG/2 ML VIAL IV SCH (10:00)
[2020-12-22] MEDS: POTASSIUM EFFERVESENT TAB 25 MEQ GT SCH (10:00)
[2020-12-22] MEDS: SODIUM CHLOR 0.9% PF (SALINE LOCK) 10ML VIAL/SYR IV SCH (10:00)
[2020-12-22] MEDS: INSULIN LANTUS (GLARGINE) 1 /0.01ml (100units/ml) SC SCH (10:07)
[2020-12-22 13:00] VITALS: BP 141/71
[2020-12-22] MEDS: POTASSIUM CHL 20MEQ/100ML 100 ML IV SCH ×2 (13:56→16:01)
[2020-12-22 17:00] VITALS: BP 143/76
== END 2020-12-22 18:17 | disposition left against medical advice (07) | DRG 870 ==
LOC: EDUNIT# 11:23 → EDBD 11:23 → ER 11:23 → TELE 13:48 → ICU WEST 16:17 → TELE-CENTR 12-20 12:16 → TELE-WESTW 12-21 18:20
PROVIDERS: ADMIT Nurse Practitioner Acute Care; ATTEND Internal Medicine
PROC: 5A1955Z Respiratory Ventilation, Greater than 96 Consecutive Hours (ICD-10-PCS; principal; 2020-12-09)
PROC: 0BH17EZ Insertion of Endotracheal Airway into Trachea, Via Natural or Artificial Opening (ICD-10-PCS; 2020-12-09)
PROC: 02H633Z Insertion of Infusion Device into Right Atrium, Percutaneous Approach (ICD-10-PCS; 2020-12-09)
DX: A41.9 Sepsis, unspecified organism (principal); J96.01 Acute respiratory failure with hypoxia; J69.0 Pneumonitis due to inhalation of food and vomit; G93.41 Metabolic encephalopathy; E11.11 Type 2 diabetes mellitus with ketoacidosis with coma; R57.1 Hypovolemic shock; N17.0 Acute kidney failure with tubular necrosis; I50.33 Acute on chronic diastolic (congestive) heart failure; J15.4 Pneumonia due to other streptococci; J44.0 Chronic obstructive pulmonary disease with (acute) lower respiratory infection; E87.0 Hyperosmolality and hypernatremia; J44.1 Chronic obstructive pulmonary disease with (acute) exacerbation; J98.2 Interstitial emphysema; R65.20 Severe sepsis without septic shock; I11.0 Hypertensive heart disease with heart failure; Z96.41 Presence of insulin pump (external) (internal); Z53.29 Procedure and treatment not carried out because of patient's decision for other reasons; Z20.822 Contact with and (suspected) exposure to COVID-19; E87.5 Hyperkalemia; Z68.35 Body mass index [BMI] 35.0-35.9, adult; E66.9 Obesity, unspecified; Z86.73 Personal history of transient ischemic attack (TIA), and cerebral infarction without residual deficits; Z79.4 Long term (current) use of insulin; Z79.899 Other long term (current) drug therapy; Z82.49 Family history of ischemic heart disease and other diseases of the circulatory system; Z83.3 Family history of diabetes mellitus; Z91.14 Patient's other noncompliance with medication regimen
CPT/HCPCS: 31500; 36415; 36556; 36569; 36600; 70450; 71045; 71250; 80048; 80053; 80320; 81001; 82010; 82570; 82805; 82962; 83605; 83735; 84100; 84132; 84156; 84300; 84484; 85007; 85025; 85027; 85610; 85730; 87040; 87070; 87081; 87205; 87426; 87493; 93005; 94002; 94003; 94640; 96361; 96365; 97110; 99291; C9113; G0378; J0696; J1815; J2250; J2543; J2704; J3480